=== PATIENT | male | born 1970 | race Two or more races ===

== ENCOUNTER 2017-07-18 12:54 | Inpatient (IN) | payer OTHER ==
[2017-07-18 12:58] VITALS: BMI 24.2
--- NOTE | 2017-07-18 14:59 | HP ---
COWS - Scale Resting Pulse: 1= AL 81-100 Sweatin=Flushed/Facial Moisture Restless Observation: 3= Extraneous Movement Pupil Size: 2= Moderately Dilated Bone or Joint Aches: 2= Severe Diffuse Aches Runny Nose/ Eye Tearin= Runny Nose/Eyes GI Upset > 30mins: 3= Vomiting/Diarrhea Tremor Observation: 2= Slight Tremor Visible Yawning Observation: 2= >3x During Session Anxiety or Irritability: 2=Irritable/Anxious Goose Flesh Skin: 0=Smooth Skin COWS Score: 21 CIWA Score - CIWA Score Nausea/Vomitin Muscle Tremors: 3 Anxiety: 3 Agitation: 3 Paroxysmal Sweats: 2 Orientation: 0-Oriented Tacttile Disturbances: 2-Mild Itch/Numbness/Burn Auditory Disturbances: 2-Mild Harshness/Frighten Visual Disturbances: 1-Very Mild Sensitivity Headache: 2-Mild CIWA-Ar Total Score: 21 Admission ROS BHS - HPI Chief Complaint: I NEED HELP TO STOP USING HEROIN,ALCOHOL,XANAX,MARIJUANA Allergies/Adverse Reactions: Allergies Allergy/AdvReac Type Severity Reaction Status Date / Time Fish Containing Products Allergy Severe Swelling Verified 11/15/15 14:58 History of Present Illness: THIS 47 YEARS OLD MALE WITH HEROIN,ALCOHOL,MARIJUANA AND XANAX DEPENDENCE, SEEKING DETOX,LAST TREATMENT IN REHAB [facility] 11/14/16 TO 11/21/16 ALLERGIC TO SEAFOOD INSOMNIA NICOTINE DEPENDENCE WEIGHT LOSS HIV SINCE 1985 LONGEST PERIOD OF SOBRIETY 2 YEARS Exam Limitations: No Limitations - Ebola screening Have you been sick,other than usual withdrawal symptoms: No - Review of Systems Constitutional: Chills, Loss of Appetite, Malaise, Night Sweats, Changes in sleep, Weakness, Unintentional Wgt. Loss EENT: reports: Tearing, Nose Congestion Respiratory: reports: No Symptoms reported, Other (ASTHMA HISTORY) Cardiac: reports: No Symptoms Reported GI: reports: Diarrhea, Nausea, Vomiting, Abdominal cramping : reports: No Symptoms Reported Musculoskeletal: reports: Back Pain, Muscle Pain Integumentary: reports: Dryness Neuro: reports: Headache, Tremors Endocrine: reports: No Symptoms Reported Hematology: reports: Other (HIV) Psychiatric: reports: No Sypmtoms Reported, other (INSOMNIA) Patient History - Patient Medical History Hx Anemia: No Hx Asthma: Yes (ON ALBUTEROL INHALER) Hx Chronic Obstructive Pulmonary Disease (COPD): No Hx Cancer: No Hx Cardiac Disorders: No Hx Congestive Heart Failure: No Hx Hypertension: No Hx Hypercholesterolemia: Yes (ON MED) Hx Pacemaker: No HX Cerebrovascular Accident: No Hx Seizures: No Hx Dementia: No Hx Diabetes: No Hx Gastrointestinal Disorders: No Hx Liver Disease: No Hx Genitourinary Disorders: No Hx Sexually Transmitted Disorders: No Hx Renal Disease (ESRD): No Hx Thyroid Disease: No Hx Human Immunodeficiency Virus (HIV): Yes (SINCE 1985) Hx Hepatitis C: No Hx Depression: No Hx Suicide Attempt: No Hx Bipolar Disorder: No Hx Schizophrenia: No Other Medical History: INSOMNIA,NO SUICIDAL,NO HOMICIDAL - Patient Surgical History Past Surgical History: No Hx Neurologic Surgery: No Hx Cataract Extraction: No Hx Cardiac Surgery: No Hx Lung Surgery: No Hx Breast Surgery: No Hx Breast Biopsy: No Hx Abdominal Surgery: No Hx Appendectomy: No Hx Cholecystectomy: No Hx Genitourinary Surgery: No Hx Section: No Hx Orthopedic Surgery: No Anesthesia Reaction: No - PPD History Previous Implant?: Yes Documented Results: Negative w/o proof PPD to be Administered?: Yes - Smoking Cessation Smoking history: Current every day smoker Have you smoked in the past 12 months: Yes Aproximately how many cigarettes per day: 10 Hx Chewing Tobacco Use: No Initiated information on smoking cessation: Yes 'Breaking Loose' booklet given: 07/18/17 - Substance & Tx. History Hx Alcohol Use: Yes Hx Substance Use: Yes Substance Use Type: Alcohol, Heroin Hx Substance Use Treatment: Yes ([facility] FROM 11/15/15 TO 11/21/13 [facility]) - Substances Abused Alcohol Route: Oral Frequency: Daily Amount used: 1 PINT OF JESSICABARCADI/ 2 OF 6 PACKS OF 12 OZS OF BEER Age of first use: 9 Date of Last Use: 07/18/17 Heroin Route: Inhalation Frequency: Daily Amount used: 10 BAGS Age of first use: 11 Date of Last Use: 07/18/17 Marijuana/Hashish Route: Smoking Frequency: Daily Amount used: 10$ Age of first use: 10 Date of Last Use: 07/17/17 Alprazolam (Xanax) Route: Oral Frequency: 1-2 times per week Amount used: 4 MGS Age of first use: 46 Date of Last Use: 07/17/17 Family Disease History - Family Disease History Family History: Denies Admission Physical Exam [facility] - Vital Signs Vital Signs: Vital Signs - 24 hr 07/18/17 12:55 Temperature 96 F L Pulse Rate 93 H Respiratory 20 Rate Blood Pressure 140/93 - Physical General Appearance: Yes: Moderate Distress, Tremorous, Irritable, Sweating, Anxious HEENTM: Yes: Normal ENT Inspection, Normocephalic, [place], Pharynx Normal Respiratory: Yes: Lungs Clear, Normal Breath Sounds, No Respiratory Distress Breast: Yes: Within Normal Limits Cardiology: Yes: Within Normal Limits, Regular Rhythm, Regular Rate, S1, S2 Abdominal: Yes: Within Normal Limits, Normal Bowel Sounds, Non Tender, Soft Genitourinary: Yes: Within Normal Limits Back: Yes: Muscle Spasm Musculoskeletal: Yes: full range of Motion, Back pain, Muscle Pain Extremities: Yes: Tremors Neurological: Yes: sole cementer II-XII NML intact, Fully Oriented, Alert, Motor Strength 5/5, Normal Mood/Affect Integumentary: Yes: Dry Lymphatic: Yes: Within Normal Limits - Diagnostic (1) Opioid dependence with withdrawal Current Visit: Yes Status: Acute (2) Alcohol dependence with uncomplicated withdrawal Current Visit: Yes Status: Acute (3) Asthma Current Visit: No Status: Acute (4) Hepatitis C Current Visit: No Status: Acute (5) Hypercholesterolemia Current Visit: No Status: Acute (6) Hypertension Current Visit: No Status: Acute (7) Neuropathy Current Visit: No Status: Acute (8) Nicotine dependence Current Visit: No Status: Acute (9) Weight loss Current Visit: No Status: Acute (10) Insomnia Current Visit: Yes Status: Acute Cleared for Admission [facility] - Detox or Rehab [facility] Level of Care: Medically Managed Detox Regimen/Protocol: Methadone/Librium [facility] Breath Alcohol Content Breath Alcohol Content: 0.087 Urine Drug Screen - Results Drug Screen Negative: No Urine Drug Screen Results: THC-Marijuana, OPI-Opiates, BZO-Benzodiazepines, MTD- Methadone
[2017-07-18] MEDS ORDERED: MAGNESIUM CITRATE 300 ML BOTTLE PO PRN (15:18)
[2017-07-18] MEDS ORDERED: MAGNESIUM HYDROX 2400MG/30ML ORAL SUSPENSION 30 ML CUP PO PRN (15:18)
[2017-07-18] MEDS ORDERED: guaiFENesin/D-METHORPHAN HB 10 ML UNIT-DOSE CUPS PO PRN (15:18)
[2017-07-18] MEDS ORDERED: IBUPROFEN 400 MG TABLET (FP) PO PRN (15:18)
[2017-07-18] MEDS ORDERED: ACETAMINOPHEN 325 MG TABLET (FP) PO PRN (15:18)
[2017-07-18] MEDS ORDERED: MENTHOL/PHENOL 1 EACH UD MM PRN (15:18)
[2017-07-18] MEDS ORDERED: METHADONE HCL 10 MG TABLET (FOR DETOX USE ONLY) PO ONE ×2 (15:18→23:00)
[2017-07-18] MEDS ORDERED: chlordiazePOXIDE HCL 25 MG CAPSULE PO PRN (15:18)
[2017-07-18] MEDS ORDERED: chlordiazePOXIDE HCL 25 MG CAPSULE PO ONE (15:18)
[2017-07-18] MEDS ORDERED: P-EPHED 60MG/TRIPROLIDI 2.5MG TABLET PO PRN (15:18)
[2017-07-18] MEDS ORDERED: MAG HYDROX/AL HYDROX/SIMETH 30 ML UNIT-DOSE CUP PO PRN (15:18)
[2017-07-18] MEDS ORDERED: hydrOXYzine PAMOATE 50 MG CAPSULE (FP) PO PRN (15:18)
[2017-07-18] MEDS ORDERED: LOPERAMIDE HCL 2 MG CAPSULE PO PRN (15:18)
[2017-07-18] MEDS ORDERED: ALBUTEROL SO4 18 GM HFA INHALER IH PRN (15:23)
[2017-07-18] MEDS: chlordiazePOXIDE HCL 25 MG CAPSULE PO SCH ×2 (17:41→22:39)
[2017-07-18 18:58] LABS: URINE APPEARANCE CLEAR; URINE BILIRUBIN NEGATIVE (NEGATIVE); URINE BLOOD NEGATIVE (NEGATIVE); URINE COLOR STRAW; URINE GLUCOSE (UA) NEGATIVE (NEGATIVE); URINE KETONE NEGATIVE (NEGATIVE); URINE LEUK ESTERASE NEGATIVE (NEGATIVE); URINE NITRITE NEGATIVE (NEGATIVE); URINE PROTEIN NEGATIVE (NEGATIVE); URINE UROBILINOGEN NEGATIVE mg/dL (0.2-1.0)
[2017-07-18] MEDS ORDERED: lamiVUDine/ZIDOVUDINE 150/300 1 COMBO TABLET PO SCH (22:00)
[2017-07-18] MEDS ORDERED: THIAMINE HCL 100 MG TABLET (FP) PO SCH (22:00)
[2017-07-19] MEDS: chlordiazePOXIDE HCL 25 MG CAPSULE PO SCH (05:56)
[2017-07-19 06:23] VITALS: BP 123/74; PULSE 55; TEMP 98.1
--- NOTE | 2017-07-19 07:35 | CONSULT ---
[facility] Psychiatric Consult - Data Identifying data: THIS 47 YEARS OLD MALE WITH HEROIN,ALCOHOL,MARIJUANA AND XANAX DEPENDENCE,SEEKING DETOX,LAST TREATMENT IN REHAB [facility] 11/14/16 TO . ALLERGIC TO SEAFOOD Substance Abuse History: Smoking history: Current every day smoker. Have you smoked in the past 12 months: Yes. Aproximately how many cigarettes per day: 10. Hx Chewing Tobacco Use: No. Initiated information on smoking cessation: Yes. 'Breaking Loose' booklet given: 07/18/17. - Substance & Tx. History. Hx Alcohol Use: Yes. Hx Substance Use: Yes. Substance Use Type: Alcohol, Heroin. Hx Substance Use Treatment: Yes ([facility] FROM 11/15/15 TO 11/21/13 [facility]). - Substances Abused. Alcohol. Route: Oral. Frequency: Daily. Amount used : 1 PINT OF JESSICA,BARCADI/ 2 OF 6 PACKS OF 12 OZS OF BEER. Age of first use: 9. Date of Last Use: 07/18/17. Heroin. Route: Inhalation. Frequency: Daily. Amount used: 10 BAGS. Age of first use: 11. Date of Last Use: . Marijuana/Hashish. Route: Smoking. Frequency: Daily. Amount used: 10$ . Age of first use: 10. Date of Last Use: 07/17/17. Alprazolam (Xanax). Route: Oral. Frequency: 1-2 times per week. Amount used: 4 MGS. Age of first use: 46. Date of Last Use: 07/17/17 Additional Comment: Discharged AMA
[2017-07-19] MEDS ORDERED: DARUNAVIR ETHANOLATE 800 MG TAB PO SCH (08:00)
--- NOTE | 2017-07-19 08:24 | PN ---
[place] Progress Note Note: patient stated he is on methadone maintenance program at [facility],verified 80 mgs /day,last medicated 07/18/17 methadone ordered,d/c methadone regimen,cont detox with librium regimen
[2017-07-19] MEDS ORDERED: METHADONE HCL 40 MG DISPERSABLE TABLET PO ONE (08:27)
--- NOTE | 2017-07-19 09:42 | PN ---
S CIWA - CIWA Score Nausea/Vomitin Muscle Tremors: 3 Anxiety: 3 Agitation: 3 Paroxysmal Sweats: 1-Minimal Palms Moist Orientation: 0-Oriented Tacttile Disturbances: 1-Very Mild Itch/Numbness Auditory Disturbances: 1-Very Mild Visual Disturbances: 0-None Headache: 2-Mild CIWA-Ar Total Score: 17 BHS Progress Note (SOAP) Subjective: alert,irritable,anxious,interrupted sleep,tremor,pain in the body Objective: 07/19/17 09:39 Vital Signs Temperature 98.1 F 07/19/17 06:22 Pulse Rate 55 L 07/19/17 06:22 Respiratory Rate 18 07/19/17 06:22 Blood Pressure 123/74 07/19/17 06:22 O2 Sat by Pulse Oximetry (%) ekg nsr,inverted t in 3 no chest pain,no sob,no dizziness Laboratory Last Values Urine Color Straw 07/18/17 15:45 Urine Appearance Clear 07/18/17 15:45 Urine pH 6.0 (5.0-8.0) 07/18/17 15:45 Ur Specific [place] 1.005 (1.001-1.035) 07/18/17 15:45 Urine Protein Negative (NEGATIVE) 07/18/17 15:45 Urine Glucose (UA) Negative (NEGATIVE) 07/18/17 15:45 Urine Ketones Negative (NEGATIVE) 07/18/17 15:45 Urine Blood Negative (NEGATIVE) 07/18/17 15:45 Urine Nitrite Negative (NEGATIVE) 07/18/17 15:45 Urine Bilirubin Negative (NEGATIVE) 07/18/17 15:45 Urine Urobilinogen Negative mg/dL (0.2-1.0) 07/18/17 15:45 Ur Leukocyte Esterase Negative (NEGATIVE) 07/18/17 15:45 labs pending Assessment: 07/19/17 09:41 withdrawal symptom Plan: continue detox
--- NOTE | 2017-07-19 09:44 | PN ---
[place] Progress Note Note: patient did not want to complete treatment due to emergency medical problem in the family mother is in the hospital, signed release ama,seen by counselor
--- NOTE | 2017-07-19 09:49 | DS ---
[facility] Detox Discharge Summary Admission Date: 07/18/17 Discharge Date: 07/19/17 - History Present History: Alcohol Dependence, Opioid Dependence, MMTP Additional Comments: patient did not want to complete treatment due to emergency medical problem iin the family mother is in the hospital,signed release ama,seen by counselor Pertinent Past History: asthma hepatitis c hypertension hypercholesterolemia nicotine dependence mmtp hiv weight loss insomnia - Physical Exam Results Vital Signs: Vital Signs Temperature 98.1 F 07/19/17 06:22 Pulse Rate 55 L 07/19/17 06:22 Respiratory Rate 18 07/19/17 06:22 Blood Pressure 123/74 07/19/17 06:22 O2 Sat by Pulse Oximetry (%) Pertinent Admission Physical Exam Findings: withdrawal symptom and finding - Medication Discharge Medications: Ambulatory Orders Albuterol Sulfate Inhaler - [Ventolin Hfa Inhaler -] 2 inh PO Q4H PRN 11/15/15 Ritonavir [Norvir -] 100 mg PO DAILY 11/15/15 predniSONE [Deltasone -] 5 mg PO DAILY 11/15/15 Darunavir Ethanolate [Prezista -] 800 mg PO DAILY@0800 #30 tablet 11/22/15 Lamivudine/Zidovudine 150/300 [Combivir Tablet 150/300 -] 1 combo PO BID #30 tablet 11/22/15 Quetiapine Fumarate [Seroquel -] 50 mg PO DAILY #30 tablet 11/22/15 Ritonavir [Norvir -] 100 mg PO DAILY@0800 #30 tab 11/22/15 traZODone HCL [Desyrel -] 50 mg PO HS #30 tablet 11/22/15 Quetiapine Fumarate [Seroquel -] 200 mg PO HS #30 tab 07/19/17 - Diagnosis (1) Opioid dependence with withdrawal Current Visit: Yes Status: Acute (2) Alcohol dependence with uncomplicated withdrawal Current Visit: Yes Status: Acute (3) Asthma Current Visit: No Status: Acute (4) Hepatitis C Current Visit: No Status: Acute (5) Hypercholesterolemia Current Visit: No Status: Acute (6) Hypertension Current Visit: No Status: Acute (7) Neuropathy Current Visit: No Status: Acute (8) Nicotine dependence Current Visit: No Status: Acute (9) Weight loss Current Visit: No Status: Acute (10) Insomnia Current Visit: Yes Status: Acute (11) Methadone maintenance therapy patient Current Visit: Yes Status: Acute (12) HIV (human immunodeficiency virus infection) Current Visit: No Status: Acute - AMA Did Patient Leave Against Medical Advice: Yes
[2017-07-19] MEDS ORDERED: METHADONE HCL 10 MG TABLET (FOR DETOX USE ONLY) PO SCH (10:00)
[2017-07-19] MEDS ORDERED: predniSONE 10 MG TABLET (UD) PO SCH (10:00)
[2017-07-19] MEDS ORDERED: RITONAVIR 100 MG TABLET PO SCH (10:00)
[2017-07-19] MEDS ORDERED: PRENATAL VITAMINS W/ FOLIC ACID TABLET (FP) PO SCH (10:00)
[2017-07-19 10:06] LABS: HEMOGLOBIN 14.2 GM/dL (11.7-16.9); MCH 27.7 pg (25.7-33.7); MCHC 32.4 g/dl (32.0-35.9); MEAN CELL VOLUME 85.5 fl (80-96); MEAN PLT VOLUME 11.2 fl (7.5-11.1); PLATELET COUNT 60 K/MM3 (134-434); RBC 5.14 M/mm3 (4.00-5.60); RDW 13.4 % (11.9-15.9); WHITE BLOOD COUNT 2.8 K/mm3 (4.0-10.0)
[2017-07-19 10:20] LABS: CHLORIDE 105 mmol/L (98-107); SODIUM 139 mmol/L (136-145)
[2017-07-19 10:29] LABS: ALBUMIN 3.3 g/dl (3.4-5.0); ALK PHOS 155 U/L (45-117); ANION GAP 5 (8-16); BILIRUBIN,TOTAL 0.6 mg/dL (0.2-1.0); BLOOD UREA NITROGEN 13 mg/dL (7-18); CALCIUM 8.2 mg/dL (8.5-10.1); CO2 29 mmol/L (21-32); GLUCOSE,RANDOM 134 mg/dL (74-106); SGOT/AST 74 U/L (15-37); SGPT/ALT 145 U/L (12-78); TOT PROT 6.5 g/dl (6.4-8.2)
[2017-07-19] MEDS ORDERED: chlordiazePOXIDE HCL 25 MG CAPSULE PO SCH (17:00)
[2017-07-19] MEDS ORDERED: QUEtiapine FUMARATE 200 MG TABLET PO SCH (22:00)
--- NOTE | 2017-07-19 23:33 | EKG ---
Test Reason : Blood Pressure : / mmHG Vent. Rate : 078 BPM Atrial Rate : 078 BPM P-R Int : 110 ms QRS Dur : 096 ms QT Int : 394 ms P-R-T Axes : 018 -14 006 degrees QTc Int : 449 ms SINUS RHYTHM WITH SHORT AL NONSPECIFIC T WAVE ABNORMALITY ABNORMAL ECG WHEN COMPARED WITH ECG OF 18-JUL-2017 16:05, NO SIGNIFICANT CHANGE WAS FOUND Confirmed by AYDEN MENA, LEN ([id number]) on 07/19/2017 11:33:06 PM Referred By: Alex Perez Confirmed By:LEN HENSLEY MD
[2017-07-20] MEDS ORDERED: METHADONE HCL 40 MG DISPERSABLE TABLET PO SCH (06:00)
[2017-07-20] MEDS ORDERED: METHADONE HCL 5 MG TABLET (FOR DETOX USE ONLY) PO SCH (10:00)
[2017-07-20] MEDS ORDERED: chlordiazePOXIDE 5 MG CAPSULE PO SCH (17:00)
[2017-07-21] MEDS ORDERED: chlordiazePOXIDE HCL 10 MG CAPSULE PO SCH (17:00)
[2017-07-22] MEDS ORDERED: METHADONE HCL 10 MG TABLET (FOR DETOX USE ONLY) PO SCH (10:00)
[2017-07-23] MEDS ORDERED: METHADONE HCL 5 MG TABLET (FOR DETOX USE ONLY) PO SCH (06:00)
== END 2017-07-19 09:57 | disposition left against medical advice (07) | DRG 770 ==
LOC: YASAS 12:54 → Y6N 14:16
PROVIDERS: ADMIT Internal Medicine; ATTEND Internal Medicine
PROC: HZ2ZZZZ Detoxification Services for Substance Abuse Treatment (ICD-10-PCS; principal; 2017-07-18)
DX: F11.23 Opioid dependence with withdrawal (principal); F10.230 Alcohol dependence with withdrawal, uncomplicated; F17.210 Nicotine dependence, cigarettes, uncomplicated; I10 Essential (primary) hypertension; J45.909 Unspecified asthma, uncomplicated; E78.00 Pure hypercholesterolemia, unspecified; G62.9 Polyneuropathy, unspecified; G47.00 Insomnia, unspecified; Z21 Asymptomatic human immunodeficiency virus [HIV] infection status; Z91.013 Allergy to seafood; Z87.898 Personal history of other specified conditions
CPT/HCPCS: 36415; 80053; 81003; 85027; 86593; 93005; 93010

== ENCOUNTER 2022-09-28 10:44 | Inpatient (IN) | payer OTHER ==
[2022-09-28 11:04] VITALS: BMI 25.4
[2022-09-28] MEDS ORDERED: DICYCLOMINE HCL 10 MG CAPSULE PO PRN (12:32)
[2022-09-28] MEDS ORDERED: ONDANSETRON *ODT* 4 MG TABLET SL PRN (12:32)
[2022-09-28] MEDS ORDERED: BISMUTH SUBSALICYLATE 262 MG/15 ML BTL PO PRN (12:32)
[2022-09-28] MEDS ORDERED: NICOTINE POLACRILEX 2 MG GUM BUC PRN (12:32)
[2022-09-28] MEDS ORDERED: MAGNESIUM HYDROX 2400MG/30ML ORAL SUSPENSION 30 ML CUP PO PRN (12:32)
[2022-09-28] MEDS ORDERED: guaiFENesin 600 MG TABLET.ER (FP) PO PRN (12:32)
[2022-09-28] MEDS ORDERED: POLYETHYLENE GLYCOL (HEALTHYLAX) 3350 17 GM PACKET PO PRN (12:32)
[2022-09-28] MEDS ORDERED: NICOTINE 10 MG CARTRIDGE (INHALER) IH PRN (12:32)
[2022-09-28] MEDS ORDERED: LOPERAMIDE HCL 2 MG CAPSULE PO PRN (12:32)
[2022-09-28] MEDS ORDERED: IBUPROFEN 400 MG TABLET (FP) PO PRN (12:32)
[2022-09-28] MEDS ORDERED: IBUPROFEN 600 MG TABLET (FP) PO PRN (12:32)
[2022-09-28] MEDS ORDERED: BENZOCAINE/MENTHOL (CHLORASEPTIC ) LOZENGE MM PRN (12:32)
[2022-09-28] MEDS ORDERED: NALOXONE HCL (KLOXXADO) 8 MG SPRAY NS PRN (12:32)
[2022-09-28] MEDS ORDERED: BENZONATATE 200 MG CAPSULE PO PRN (12:32)
[2022-09-28] MEDS ORDERED: hydrOXYzine PAMOATE 25 MG CAPSULE (FP) PO PRN (12:32)
[2022-09-28] MEDS ORDERED: ACETAMINOPHEN 325 MG TABLET (FP) PO PRN (12:32)
[2022-09-28] MEDS ORDERED: NALOXONE HCL 0.4 MG/ML VIAL IM PRN (12:32)
[2022-09-28] MEDS ORDERED: ALBUTEROL SO4 HFA INHALER IH PRN (12:35)
[2022-09-28] MEDS: PRENATAL VITAMINS W/ FOLIC ACID TABLET (FP) PO SCH (14:33)
[2022-09-28 14:35] LABS: HEMATOCRIT 40.9 % (35.4-49); MCH 28.5 pg (25.7-33.7); MCHC 34.2 g/dl (32.0-35.9); MEAN CELL VOLUME 83.3 fl (80-96); MEAN PLT VOLUME 9.8 fl (7.5-11.1); PLATELET COUNT 133 10^3/uL (134-434); RBC 4.91 M/mm3 (4.00-5.60); RDW 15.4 % (11.9-15.9); WHITE BLOOD COUNT 4.8 K/mm3 (4.0-10.0)
[2022-09-28 14:47] LABS: ALBUMIN 3.3 g/dl (3.4-5.0); BLOOD UREA NITROGEN 13.2 mg/dL (7-18); CALCIUM 8.8 mg/dL (8.5-10.1)
[2022-09-28 14:52] LABS: BILIRUBIN,TOTAL 0.5 mg/dL (0.2-1)
[2022-09-28] MEDS: diazePAM 5 MG TABLET PO SCH ×2 (17:13→22:26)
[2022-09-28] MEDS ORDERED: MELATONIN 5 MG TABLETS PO SCH (22:00)
[2022-09-28] MEDS: THIAMINE HCL 100 MG TABLET (FP) PO SCH (22:24)
[2022-09-28] MEDS: QUEtiapine FUMARATE 100 MG TABLET (FP) PO SCH (22:25)
[2022-09-29] MEDS: diazePAM 5 MG TABLET PO SCH ×4 (05:32→22:16)
[2022-09-29] MEDS ORDERED: methaDONE HCL 10 MG TABLET PO SCH (06:00)
[2022-09-29] MEDS: ELVITEG/COB/EMTRI/TENOF (GENVOYA) TABLET PO SCH (07:50)
[2022-09-29] MEDS: SERTRALINE HCL 50 MG TABLET (FP) PO SCH (10:32)
[2022-09-29] MEDS: PRENATAL VITAMINS W/ FOLIC ACID TABLET (FP) PO SCH (10:32)
[2022-09-29] MEDS: predniSONE 5 MG TABLET (UD) PO SCH (10:32)
[2022-09-29] MEDS: diazePAM 5 MG TABLET PO PRN (18:49)
[2022-09-29] MEDS: QUEtiapine FUMARATE 100 MG TABLET (FP) PO SCH (22:15)
[2022-09-29] MEDS: THIAMINE HCL 100 MG TABLET (FP) PO SCH (22:15)
[2022-09-30] MEDS: diazePAM 5 MG TABLET PO SCH ×3 (05:41→22:27)
[2022-09-30] MEDS: ELVITEG/COB/EMTRI/TENOF (GENVOYA) TABLET PO SCH (07:31)
[2022-09-30] MEDS: predniSONE 5 MG TABLET (UD) PO SCH (10:24)
[2022-09-30] MEDS: PRENATAL VITAMINS W/ FOLIC ACID TABLET (FP) PO SCH (10:24)
[2022-09-30] MEDS: SERTRALINE HCL 50 MG TABLET (FP) PO SCH (10:24)
[2022-09-30] MEDS: diazePAM 5 MG TABLET PO PRN (10:24)
[2022-09-30] MEDS: MAG HYDROX/AL HYDROX/SIMETH 30 ML UNIT-DOSE CUP PO PRN ×2 (14:20→23:33)
[2022-09-30] MEDS: THIAMINE HCL 100 MG TABLET (FP) PO SCH (22:27)
[2022-09-30] MEDS: QUEtiapine FUMARATE 100 MG TABLET (FP) PO SCH (22:27)
[2022-09-30] MEDS: METHOCARBAMOL 500 MG TABLET PO PRN (22:28)
[2022-10-01] MEDS: diazePAM 5 MG TABLET PO SCH ×2 (05:29→17:55)
[2022-10-01] MEDS: ELVITEG/COB/EMTRI/TENOF (GENVOYA) TABLET PO SCH (07:13)
[2022-10-01] MEDS: METHOCARBAMOL 500 MG TABLET PO PRN ×2 (09:40→22:21)
[2022-10-01] MEDS: diazePAM 5 MG TABLET PO PRN (09:40)
[2022-10-01] MEDS: predniSONE 5 MG TABLET (UD) PO SCH (09:41)
[2022-10-01] MEDS: SERTRALINE HCL 50 MG TABLET (FP) PO SCH (09:41)
[2022-10-01] MEDS: PRENATAL VITAMINS W/ FOLIC ACID TABLET (FP) PO SCH (09:41)
[2022-10-01] MEDS: THIAMINE HCL 100 MG TABLET (FP) PO SCH (22:20)
[2022-10-01] MEDS: QUEtiapine FUMARATE 100 MG TABLET (FP) PO SCH (22:20)
[2022-10-02] MEDS ORDERED: diazePAM 5 MG TABLET PO ONE (06:00)
[2022-10-02] MEDS: ELVITEG/COB/EMTRI/TENOF (GENVOYA) TABLET PO SCH (08:20)
[2022-10-02] MEDS: SERTRALINE HCL 50 MG TABLET (FP) PO SCH (10:16)
[2022-10-02] MEDS: predniSONE 5 MG TABLET (UD) PO SCH (10:16)
[2022-10-02] MEDS: PRENATAL VITAMINS W/ FOLIC ACID TABLET (FP) PO SCH (10:16)
[2022-10-02 12:40] VITALS: BP 109/73; PULSE 86; RESP 16; TEMP 97.7
== END 2022-10-02 13:38 | disposition other institution (70) | DRG 773 ==
LOC: YASAS 10:44 → Y3N 13:20
PROVIDERS: ADMIT Allergy & Immunology; ATTEND Surgery
PROC: HZ2ZZZZ Detoxification Services for Substance Abuse Treatment (ICD-10-PCS; principal; 2022-09-28)
DX: F10.230 Alcohol dependence with withdrawal, uncomplicated (principal); F11.20 Opioid dependence, uncomplicated; F13.20 Sedative, hypnotic or anxiolytic dependence, uncomplicated; F14.20 Cocaine dependence, uncomplicated; F31.9 Bipolar disorder, unspecified; F19.282 Other psychoactive substance dependence with psychoactive substance-induced sleep disorder; Z21 Asymptomatic human immunodeficiency virus [HIV] infection status; G62.9 Polyneuropathy, unspecified; I10 Essential (primary) hypertension; E78.00 Pure hypercholesterolemia, unspecified; J45.30 Mild persistent asthma, uncomplicated; Z62.810 Personal history of physical and sexual abuse in childhood; Z86.19 Personal history of other infectious and parasitic diseases; Z72.0 Tobacco use
CPT/HCPCS: 36415; 80053; 82140; 85027; 86780; 87811; 93005; 93010; C9803-CS; U0003; U0005

== ENCOUNTER 2022-10-02 14:00 | Inpatient (IN) | payer OTHER ==
[2022-10-02] MEDS ORDERED: LOPERAMIDE HCL 2 MG CAPSULE PO PRN (14:41)
[2022-10-02] MEDS ORDERED: BENZONATATE 200 MG CAPSULE PO PRN (14:41)
[2022-10-02] MEDS ORDERED: IBUPROFEN 600 MG TABLET (FP) PO PRN (14:41)
[2022-10-02] MEDS ORDERED: NALOXONE HCL (KLOXXADO) 8 MG SPRAY NS PRN (14:41)
[2022-10-02] MEDS ORDERED: NALOXONE HCL 0.4 MG/ML VIAL IVPUSH PRN (14:41)
[2022-10-02] MEDS ORDERED: BENZOCAINE/MENTHOL (CHLORASEPTIC ) LOZENGE MM PRN (14:41)
[2022-10-02] MEDS ORDERED: AMMONIUM LACTATE 12% LOTION 225 GM BOTTLE TP PRN (14:41)
[2022-10-02] MEDS ORDERED: COLLOIDAL OATMEAL 1 BAR EACH TP PRN (14:41)
[2022-10-02] MEDS ORDERED: hydrOXYzine PAMOATE 25 MG CAPSULE (FP) PO PRN (14:41)
[2022-10-02] MEDS ORDERED: IBUPROFEN 400 MG TABLET (FP) PO PRN (14:41)
[2022-10-02] MEDS ORDERED: ACETAMINOPHEN 325 MG TABLET (FP) PO PRN (14:41)
[2022-10-02] MEDS ORDERED: MAGNESIUM HYDROX 2400MG/30ML ORAL SUSPENSION 30 ML CUP PO PRN (14:41)
[2022-10-02] MEDS ORDERED: POLYETHYLENE GLYCOL (HEALTHYLAX) 3350 17 GM PACKET PO PRN (14:41)
[2022-10-02] MEDS ORDERED: guaiFENesin 600 MG TABLET.ER (FP) PO PRN (14:41)
[2022-10-02] MEDS ORDERED: ALBUTEROL SO4 HFA INHALER IH PRN (14:44)
[2022-10-02] MEDS: THIAMINE HCL 100 MG TABLET (FP) PO SCH (21:15)
[2022-10-02] MEDS: QUEtiapine FUMARATE 200 MG TABLET PO SCH (21:17)
[2022-10-02] MEDS: MELATONIN 5 MG TABLETS PO PRN (21:18)
[2022-10-02] MEDS ORDERED: MELATONIN 5 MG TABLETS PO SCH (22:00)
[2022-10-03] MEDS ORDERED: methaDONE HCL 10 MG TABLET PO SCH (06:00)
[2022-10-03] MEDS: ELVITEG/COB/EMTRI/TENOF (GENVOYA) TABLET PO SCH (09:00)
[2022-10-03] MEDS: SERTRALINE HCL 50 MG TABLET (FP) PO SCH (09:49)
[2022-10-03] MEDS: predniSONE 5 MG TABLET (UD) PO SCH (09:49)
[2022-10-03] MEDS: PRENATAL VITAMINS W/ FOLIC ACID TABLET (FP) PO SCH (09:49)
[2022-10-03] MEDS: THIAMINE HCL 100 MG TABLET (FP) PO SCH (21:10)
[2022-10-03] MEDS: QUEtiapine FUMARATE 200 MG TABLET PO SCH (21:11)
[2022-10-03] MEDS: MAG HYDROX/AL HYDROX/SIMETH 30 ML UNIT-DOSE CUP PO PRN (21:12)
[2022-10-03] MEDS: MELATONIN 5 MG TABLETS PO PRN (21:12)
[2022-10-04] MEDS: ELVITEG/COB/EMTRI/TENOF (GENVOYA) TABLET PO SCH (08:07)
[2022-10-04] MEDS: SERTRALINE HCL 50 MG TABLET (FP) PO SCH (10:04)
[2022-10-04] MEDS: PRENATAL VITAMINS W/ FOLIC ACID TABLET (FP) PO SCH (10:04)
[2022-10-04] MEDS: predniSONE 5 MG TABLET (UD) PO SCH (10:05)
[2022-10-04] MEDS: MAG HYDROX/AL HYDROX/SIMETH 30 ML UNIT-DOSE CUP PO PRN (11:07)
[2022-10-04] MEDS: QUEtiapine FUMARATE 200 MG TABLET PO SCH (21:26)
[2022-10-04] MEDS: MELATONIN 5 MG TABLETS PO PRN (21:26)
[2022-10-04] MEDS: THIAMINE HCL 100 MG TABLET (FP) PO SCH (21:26)
[2022-10-05] MEDS: ELVITEG/COB/EMTRI/TENOF (GENVOYA) TABLET PO SCH (07:17)
[2022-10-05] MEDS: MAG HYDROX/AL HYDROX/SIMETH 30 ML UNIT-DOSE CUP PO PRN (09:23)
[2022-10-05] MEDS: SERTRALINE HCL 50 MG TABLET (FP) PO SCH (09:55)
[2022-10-05] MEDS: predniSONE 5 MG TABLET (UD) PO SCH (09:55)
[2022-10-05] MEDS: PRENATAL VITAMINS W/ FOLIC ACID TABLET (FP) PO SCH (09:55)
[2022-10-05] MEDS: QUEtiapine FUMARATE 200 MG TABLET PO SCH (21:02)
[2022-10-05] MEDS: THIAMINE HCL 100 MG TABLET (FP) PO SCH (21:03)
[2022-10-05] MEDS: MELATONIN 5 MG TABLETS PO PRN (21:04)
[2022-10-06] MEDS: ELVITEG/COB/EMTRI/TENOF (GENVOYA) TABLET PO SCH (07:15)
[2022-10-06] MEDS: PRENATAL VITAMINS W/ FOLIC ACID TABLET (FP) PO SCH (09:42)
[2022-10-06] MEDS: predniSONE 5 MG TABLET (UD) PO SCH (09:43)
[2022-10-06] MEDS: SERTRALINE HCL 50 MG TABLET (FP) PO SCH (09:43)
[2022-10-06] MEDS: NICOTINE 10 MG CARTRIDGE (INHALER) IH PRN (09:44)
[2022-10-06] MEDS: QUEtiapine FUMARATE 200 MG TABLET PO SCH (21:15)
[2022-10-06] MEDS: MELATONIN 5 MG TABLETS PO PRN (21:15)
[2022-10-06] MEDS: THIAMINE HCL 100 MG TABLET (FP) PO SCH (21:15)
[2022-10-06] MEDS: MAG HYDROX/AL HYDROX/SIMETH 30 ML UNIT-DOSE CUP PO PRN (21:16)
[2022-10-07] MEDS: ELVITEG/COB/EMTRI/TENOF (GENVOYA) TABLET PO SCH (07:03)
[2022-10-07] MEDS: PRENATAL VITAMINS W/ FOLIC ACID TABLET (FP) PO SCH (09:51)
[2022-10-07] MEDS: SERTRALINE HCL 50 MG TABLET (FP) PO SCH (09:51)
[2022-10-07] MEDS: predniSONE 5 MG TABLET (UD) PO SCH (09:52)
[2022-10-07] MEDS: MAG HYDROX/AL HYDROX/SIMETH 30 ML UNIT-DOSE CUP PO PRN ×2 (13:46→21:15)
[2022-10-07] MEDS: NICOTINE 10 MG CARTRIDGE (INHALER) IH PRN (14:37)
[2022-10-07] MEDS: THIAMINE HCL 100 MG TABLET (FP) PO SCH (21:15)
[2022-10-07] MEDS: QUEtiapine FUMARATE 200 MG TABLET PO SCH (21:15)
[2022-10-07] MEDS: MELATONIN 5 MG TABLETS PO PRN (21:15)
[2022-10-08] MEDS: PRENATAL VITAMINS W/ FOLIC ACID TABLET (FP) PO SCH (09:48)
[2022-10-08] MEDS: ELVITEG/COB/EMTRI/TENOF (GENVOYA) TABLET PO SCH (09:48)
[2022-10-08] MEDS: predniSONE 5 MG TABLET (UD) PO SCH (09:48)
[2022-10-08] MEDS: SERTRALINE HCL 50 MG TABLET (FP) PO SCH (09:48)
[2022-10-08] MEDS: QUEtiapine FUMARATE 200 MG TABLET PO SCH (21:22)
[2022-10-08] MEDS: THIAMINE HCL 100 MG TABLET (FP) PO SCH (21:23)
[2022-10-08] MEDS: MELATONIN 5 MG TABLETS PO PRN (21:24)
[2022-10-09] MEDS: ELVITEG/COB/EMTRI/TENOF (GENVOYA) TABLET PO SCH (08:02)
[2022-10-09] MEDS: SERTRALINE HCL 50 MG TABLET (FP) PO SCH (09:39)
[2022-10-09] MEDS: PRENATAL VITAMINS W/ FOLIC ACID TABLET (FP) PO SCH (09:40)
[2022-10-09] MEDS: NICOTINE 10 MG CARTRIDGE (INHALER) IH PRN (09:40)
[2022-10-09] MEDS: predniSONE 5 MG TABLET (UD) PO SCH (09:40)
[2022-10-09] MEDS: THIAMINE HCL 100 MG TABLET (FP) PO SCH (21:18)
[2022-10-09] MEDS: QUEtiapine FUMARATE 200 MG TABLET PO SCH (21:18)
[2022-10-09] MEDS: MELATONIN 5 MG TABLETS PO PRN (21:19)
[2022-10-10] MEDS: ELVITEG/COB/EMTRI/TENOF (GENVOYA) TABLET PO SCH (07:04)
[2022-10-10] MEDS: PRENATAL VITAMINS W/ FOLIC ACID TABLET (FP) PO SCH (10:05)
[2022-10-10] MEDS: predniSONE 5 MG TABLET (UD) PO SCH (10:05)
[2022-10-10] MEDS: SERTRALINE HCL 50 MG TABLET (FP) PO SCH (10:05)
[2022-10-10] MEDS: THIAMINE HCL 100 MG TABLET (FP) PO SCH (21:19)
[2022-10-10] MEDS: QUEtiapine FUMARATE 200 MG TABLET PO SCH (21:19)
[2022-10-10] MEDS: MELATONIN 5 MG TABLETS PO PRN (21:20)
[2022-10-11] MEDS: ELVITEG/COB/EMTRI/TENOF (GENVOYA) TABLET PO SCH (07:21)
[2022-10-11] MEDS: SERTRALINE HCL 50 MG TABLET (FP) PO SCH (09:50)
[2022-10-11] MEDS: predniSONE 5 MG TABLET (UD) PO SCH (09:50)
[2022-10-11] MEDS: PRENATAL VITAMINS W/ FOLIC ACID TABLET (FP) PO SCH (09:50)
[2022-10-11] MEDS: NICOTINE 10 MG CARTRIDGE (INHALER) IH PRN (09:50)
[2022-10-11] MEDS: MELATONIN 5 MG TABLETS PO PRN (21:08)
[2022-10-11] MEDS: THIAMINE HCL 100 MG TABLET (FP) PO SCH (21:08)
[2022-10-11] MEDS: QUEtiapine FUMARATE 200 MG TABLET PO SCH (21:08)
[2022-10-12] MEDS: ELVITEG/COB/EMTRI/TENOF (GENVOYA) TABLET PO SCH (07:04)
[2022-10-12] MEDS: PRENATAL VITAMINS W/ FOLIC ACID TABLET (FP) PO SCH (09:51)
[2022-10-12] MEDS: SERTRALINE HCL 50 MG TABLET (FP) PO SCH (09:51)
[2022-10-12] MEDS: NICOTINE 10 MG CARTRIDGE (INHALER) IH PRN (09:52)
[2022-10-12] MEDS: predniSONE 5 MG TABLET (UD) PO SCH (09:52)
[2022-10-12] MEDS: QUEtiapine FUMARATE 200 MG TABLET PO SCH (21:35)
[2022-10-12] MEDS: MELATONIN 5 MG TABLETS PO PRN (21:35)
[2022-10-12] MEDS: THIAMINE HCL 100 MG TABLET (FP) PO SCH (21:36)
[2022-10-13] MEDS: predniSONE 5 MG TABLET (UD) PO SCH (09:58)
[2022-10-13] MEDS: PRENATAL VITAMINS W/ FOLIC ACID TABLET (FP) PO SCH (09:58)
[2022-10-13] MEDS: SERTRALINE HCL 50 MG TABLET (FP) PO SCH (09:58)
[2022-10-13] MEDS: NICOTINE 10 MG CARTRIDGE (INHALER) IH PRN (10:03)
[2022-10-13] MEDS: ELVITEG/COB/EMTRI/TENOF (GENVOYA) TABLET PO SCH (10:40)
[2022-10-13] MEDS: MELATONIN 5 MG TABLETS PO PRN (21:26)
[2022-10-13] MEDS: THIAMINE HCL 100 MG TABLET (FP) PO SCH (21:27)
[2022-10-13] MEDS: QUEtiapine FUMARATE 200 MG TABLET PO SCH (21:27)
[2022-10-14] MEDS: SERTRALINE HCL 50 MG TABLET (FP) PO SCH (10:11)
[2022-10-14] MEDS: PRENATAL VITAMINS W/ FOLIC ACID TABLET (FP) PO SCH (10:11)
[2022-10-14] MEDS: predniSONE 5 MG TABLET (UD) PO SCH (10:11)
[2022-10-14] MEDS: ELVITEG/COB/EMTRI/TENOF (GENVOYA) TABLET PO SCH (10:11)
[2022-10-14] MEDS: THIAMINE HCL 100 MG TABLET (FP) PO SCH (21:21)
[2022-10-14] MEDS: MELATONIN 5 MG TABLETS PO PRN (21:21)
[2022-10-14] MEDS: QUEtiapine FUMARATE 200 MG TABLET PO SCH (21:21)
[2022-10-14] MEDS: NICOTINE 10 MG CARTRIDGE (INHALER) IH PRN (21:24)
[2022-10-15] MEDS: predniSONE 5 MG TABLET (UD) PO SCH (10:02)
[2022-10-15] MEDS: PRENATAL VITAMINS W/ FOLIC ACID TABLET (FP) PO SCH (10:02)
[2022-10-15] MEDS: SERTRALINE HCL 50 MG TABLET (FP) PO SCH (10:02)
[2022-10-15] MEDS: ELVITEG/COB/EMTRI/TENOF (GENVOYA) TABLET PO SCH (10:03)
[2022-10-15] MEDS: NICOTINE 10 MG CARTRIDGE (INHALER) IH PRN (10:04)
[2022-10-15] MEDS: MAG HYDROX/AL HYDROX/SIMETH 30 ML UNIT-DOSE CUP PO PRN (12:27)
[2022-10-15] MEDS: MELATONIN 5 MG TABLETS PO PRN (21:27)
[2022-10-15] MEDS: QUEtiapine FUMARATE 200 MG TABLET PO SCH (21:27)
[2022-10-15] MEDS: THIAMINE HCL 100 MG TABLET (FP) PO SCH (21:27)
[2022-10-15] MEDS: QUEtiapine FUMARATE 100 MG TABLET (FP) PO SCH (21:42)
[2022-10-16] MEDS: NICOTINE 10 MG CARTRIDGE (INHALER) IH PRN (09:51)
[2022-10-16] MEDS: SERTRALINE HCL 50 MG TABLET (FP) PO SCH (09:51)
[2022-10-16] MEDS: ELVITEG/COB/EMTRI/TENOF (GENVOYA) TABLET PO SCH (09:52)
[2022-10-16] MEDS: predniSONE 5 MG TABLET (UD) PO SCH (09:52)
[2022-10-16] MEDS: PRENATAL VITAMINS W/ FOLIC ACID TABLET (FP) PO SCH (09:52)
[2022-10-16] MEDS: PANTOPRAZOLE 20 MG TABLET PO SCH (10:26)
[2022-10-16] MEDS: QUEtiapine FUMARATE 100 MG TABLET (FP) PO SCH (21:20)
[2022-10-16] MEDS: THIAMINE HCL 100 MG TABLET (FP) PO SCH (21:20)
[2022-10-16] MEDS: MELATONIN 5 MG TABLETS PO PRN (21:20)
[2022-10-17] MEDS: NICOTINE 10 MG CARTRIDGE (INHALER) IH PRN (09:46)
[2022-10-17] MEDS: SERTRALINE HCL 50 MG TABLET (FP) PO SCH (09:46)
[2022-10-17] MEDS: PANTOPRAZOLE 20 MG TABLET PO SCH (09:46)
[2022-10-17] MEDS: ELVITEG/COB/EMTRI/TENOF (GENVOYA) TABLET PO SCH (09:47)
[2022-10-17] MEDS: PRENATAL VITAMINS W/ FOLIC ACID TABLET (FP) PO SCH (09:47)
[2022-10-17] MEDS: predniSONE 5 MG TABLET (UD) PO SCH (09:47)
[2022-10-17] MEDS: MELATONIN 5 MG TABLETS PO PRN (21:34)
[2022-10-17] MEDS: THIAMINE HCL 100 MG TABLET (FP) PO SCH (21:34)
[2022-10-17] MEDS: QUEtiapine FUMARATE 100 MG TABLET (FP) PO SCH (21:35)
[2022-10-18] MEDS: PANTOPRAZOLE 20 MG TABLET PO SCH (09:52)
[2022-10-18] MEDS: PRENATAL VITAMINS W/ FOLIC ACID TABLET (FP) PO SCH (09:52)
[2022-10-18] MEDS: predniSONE 5 MG TABLET (UD) PO SCH (09:52)
[2022-10-18] MEDS: ELVITEG/COB/EMTRI/TENOF (GENVOYA) TABLET PO SCH (09:52)
[2022-10-18] MEDS: SERTRALINE HCL 50 MG TABLET (FP) PO SCH (09:52)
[2022-10-18] MEDS: NICOTINE 10 MG CARTRIDGE (INHALER) IH PRN (09:53)
[2022-10-18] MEDS: MELATONIN 5 MG TABLETS PO PRN (21:15)
[2022-10-18] MEDS: THIAMINE HCL 100 MG TABLET (FP) PO SCH (21:15)
[2022-10-18] MEDS: QUEtiapine FUMARATE 100 MG TABLET (FP) PO SCH (21:15)
[2022-10-19] MEDS: PRENATAL VITAMINS W/ FOLIC ACID TABLET (FP) PO SCH (09:43)
[2022-10-19] MEDS: NICOTINE 10 MG CARTRIDGE (INHALER) IH PRN (09:44)
[2022-10-19] MEDS: ELVITEG/COB/EMTRI/TENOF (GENVOYA) TABLET PO SCH (09:44)
[2022-10-19] MEDS: PANTOPRAZOLE 20 MG TABLET PO SCH (09:44)
[2022-10-19] MEDS: SERTRALINE HCL 50 MG TABLET (FP) PO SCH (09:44)
[2022-10-19] MEDS: predniSONE 5 MG TABLET (UD) PO SCH (09:44)
[2022-10-19] MEDS: MELATONIN 5 MG TABLETS PO PRN (21:33)
[2022-10-19] MEDS: QUEtiapine FUMARATE 100 MG TABLET (FP) PO SCH (21:33)
[2022-10-19] MEDS: THIAMINE HCL 100 MG TABLET (FP) PO SCH (21:34)
[2022-10-20] MEDS: PRENATAL VITAMINS W/ FOLIC ACID TABLET (FP) PO SCH (09:59)
[2022-10-20] MEDS: PANTOPRAZOLE 20 MG TABLET PO SCH (09:59)
[2022-10-20] MEDS: SERTRALINE HCL 50 MG TABLET (FP) PO SCH (09:59)
[2022-10-20] MEDS: predniSONE 5 MG TABLET (UD) PO SCH (09:59)
[2022-10-20] MEDS: NICOTINE 10 MG CARTRIDGE (INHALER) IH PRN (10:00)
[2022-10-20] MEDS: ELVITEG/COB/EMTRI/TENOF (GENVOYA) TABLET PO SCH (10:00)
[2022-10-20] MEDS: MELATONIN 5 MG TABLETS PO PRN (21:26)
[2022-10-20] MEDS: QUEtiapine FUMARATE 100 MG TABLET (FP) PO SCH (21:26)
[2022-10-20] MEDS: THIAMINE HCL 100 MG TABLET (FP) PO SCH (21:26)
[2022-10-21] MEDS: NICOTINE 10 MG CARTRIDGE (INHALER) IH PRN (09:46)
[2022-10-21] MEDS: PRENATAL VITAMINS W/ FOLIC ACID TABLET (FP) PO SCH (09:46)
[2022-10-21] MEDS: PANTOPRAZOLE 20 MG TABLET PO SCH (09:46)
[2022-10-21] MEDS: SERTRALINE HCL 50 MG TABLET (FP) PO SCH (09:46)
[2022-10-21] MEDS: predniSONE 5 MG TABLET (UD) PO SCH (09:47)
[2022-10-21] MEDS: ELVITEG/COB/EMTRI/TENOF (GENVOYA) TABLET PO SCH (09:47)
[2022-10-21] MEDS: MELATONIN 5 MG TABLETS PO PRN (21:15)
[2022-10-21] MEDS: THIAMINE HCL 100 MG TABLET (FP) PO SCH (21:15)
[2022-10-21] MEDS: QUEtiapine FUMARATE 100 MG TABLET (FP) PO SCH (21:15)
[2022-10-22] MEDS: PRENATAL VITAMINS W/ FOLIC ACID TABLET (FP) PO SCH (10:15)
[2022-10-22] MEDS: PANTOPRAZOLE 20 MG TABLET PO SCH (10:15)
[2022-10-22] MEDS: SERTRALINE HCL 50 MG TABLET (FP) PO SCH (10:16)
[2022-10-22] MEDS: predniSONE 5 MG TABLET (UD) PO SCH (10:16)
[2022-10-22] MEDS: ELVITEG/COB/EMTRI/TENOF (GENVOYA) TABLET PO SCH (10:16)
[2022-10-22] MEDS: NICOTINE 10 MG CARTRIDGE (INHALER) IH PRN (13:03)
[2022-10-22] MEDS: QUEtiapine FUMARATE 100 MG TABLET (FP) PO SCH (21:31)
[2022-10-22] MEDS: MELATONIN 5 MG TABLETS PO PRN (21:31)
[2022-10-22] MEDS: THIAMINE HCL 100 MG TABLET (FP) PO SCH (21:31)
[2022-10-23 07:59] VITALS: BP 115/78; PULSE 90; RESP 18; TEMP 97.8
[2022-10-23] MEDS: PANTOPRAZOLE 20 MG TABLET PO SCH (09:40)
[2022-10-23] MEDS: SERTRALINE HCL 50 MG TABLET (FP) PO SCH (09:40)
[2022-10-23] MEDS: PRENATAL VITAMINS W/ FOLIC ACID TABLET (FP) PO SCH (09:40)
[2022-10-23] MEDS: predniSONE 5 MG TABLET (UD) PO SCH (09:41)
[2022-10-23] MEDS: ELVITEG/COB/EMTRI/TENOF (GENVOYA) TABLET PO SCH (09:41)
== END 2022-10-23 09:59 | disposition home or self-care (01) | DRG 772 ==
LOC: YASAS 14:00 → Y5N 14:02
PROVIDERS: ADMIT Allergy & Immunology; ATTEND Allergy & Immunology
PROC: HZ42ZZZ Group Counseling for Substance Abuse Treatment, Cognitive-Behavioral (ICD-10-PCS; principal; 2022-10-02)
DX: F10.20 Alcohol dependence, uncomplicated (principal); F11.20 Opioid dependence, uncomplicated; F13.20 Sedative, hypnotic or anxiolytic dependence, uncomplicated; F14.20 Cocaine dependence, uncomplicated; F17.220 Nicotine dependence, chewing tobacco, uncomplicated; Z21 Asymptomatic human immunodeficiency virus [HIV] infection status; G47.00 Insomnia, unspecified; Z87.09 Personal history of other diseases of the respiratory system

== ENCOUNTER 2023-04-10 13:27 | Inpatient (IN) | payer OTHER ==
[2023-04-10 14:08] VITALS: BMI 26.1
[2023-04-10] MEDS ORDERED: LOPERAMIDE HCL 2 MG CAPSULE PO PRN (18:38)
[2023-04-10] MEDS ORDERED: NALOXONE HCL 0.4 MG/ML VIAL IM PRN (18:38)
[2023-04-10] MEDS ORDERED: BENZONATATE 200 MG CAPSULE PO PRN (18:38)
[2023-04-10] MEDS ORDERED: POLYETHYLENE GLYCOL (HEALTHYLAX) 3350 17 GM PACKET PO PRN (18:38)
[2023-04-10] MEDS ORDERED: NALOXONE HCL (KLOXXADO) 8 MG SPRAY NS PRN (18:38)
[2023-04-10] MEDS ORDERED: IBUPROFEN 600 MG TABLET (FP) PO PRN (18:38)
[2023-04-10] MEDS ORDERED: IBUPROFEN 400 MG TABLET (FP) PO PRN (18:38)
[2023-04-10] MEDS ORDERED: BENZOCAINE/MENTHOL (CHLORASEPTIC ) LOZENGE MM PRN (18:38)
[2023-04-10] MEDS ORDERED: guaiFENesin 600 MG TABLET.ER (FP) PO PRN (18:38)
[2023-04-10] MEDS ORDERED: MAGNESIUM HYDROX 2400MG/30ML ORAL SUSPENSION 30 ML CUP PO PRN (18:38)
[2023-04-10] MEDS ORDERED: MAG HYDROX/AL HYDROX/SIMETH 30 ML UNIT-DOSE CUP PO PRN (18:38)
[2023-04-10] MEDS: MELATONIN 5 MG TABLETS PO SCH (21:14)
[2023-04-10] MEDS: THIAMINE HCL 100 MG TABLET (FP) PO SCH (21:14)
[2023-04-11 09:46] LABS: HEMATOCRIT 42.1 % (35.4-49); HEMOGLOBIN 13.6 GM/dL (11.7-16.9); MCH 26.3 pg (25.7-33.7); MCHC 32.3 g/dl (32.0-35.9); MEAN CELL VOLUME 81.5 fl (80-96); MEAN PLT VOLUME 10.4 fl (7.5-11.1); PLATELET COUNT 126 10^3/uL (134-434); RBC 5.16 M/mm3 (4.00-5.60); RDW 14.7 % (11.9-15.9); WHITE BLOOD COUNT 4.2 K/mm3 (4.0-10.0)
[2023-04-11] MEDS: ASPIRIN 81 MG CHEWABLE TABLETS PO SCH (09:51)
[2023-04-11] MEDS: amLODIPine BESYLATE 5 MG TABLET (FP) PO SCH (09:51)
[2023-04-11] MEDS: PRENATAL VITAMINS W/ FOLIC ACID TABLET (FP) PO SCH (09:52)
[2023-04-11 10:09] LABS: CHLORIDE 108 mmol/L (98-107); POTASSIUM 4.5 mmol/L (3.5-5.1); SODIUM 142 mmol/L (136-145)
[2023-04-11 10:11] LABS: ANION GAP 4 mmol/L (4-13); CALCIUM 8.6 mg/dL (8.5-10.1); CO2 30 mmol/L (21-32); GLUCOSE,RANDOM 76 mg/dL (74-106)
[2023-04-11 10:12] LABS: ALBUMIN 2.6 g/dl (3.4-5.0); BLOOD UREA NITROGEN 12.4 mg/dL (7-18)
[2023-04-11 10:14] LABS: SGPT/ALT 45 U/L (13-61)
[2023-04-11 10:15] LABS: SGOT/AST 36 U/L (15-37)
[2023-04-11 10:16] LABS: BILIRUBIN,TOTAL 0.3 mg/dL (0.2-1); TOT PROT 5.8 g/dl (6.4-8.2)
[2023-04-11 10:17] LABS: ALK PHOS 48 U/L (45-117)
[2023-04-11] MEDS ORDERED: methaDONE HCL 10 MG TABLET PO SCH (11:30)
[2023-04-11] MEDS: methaDONE 80 MG, methaDONE 20 MG PO SCH (12:11)
[2023-04-11] MEDS: ELVITEG/COB/EMTRI/TENOF (GENVOYA) TABLET PO SCH (12:11)
[2023-04-11 13:18] LABS: SYPHILIS W/ RPR CONF NON-REACTIVE (NONREACTIVE)
[2023-04-11] MEDS: MELATONIN 5 MG TABLETS PO SCH (21:21)
[2023-04-11] MEDS: THIAMINE HCL 100 MG TABLET (FP) PO SCH (21:21)
[2023-04-11 21:36] LABS: PH,URINE 7.5 (5.0-8.0); URINE APPEARANCE CLEAR; URINE BILIRUBIN NEGATIVE (NEGATIVE); URINE COLOR YELLOW; URINE GLUCOSE (UA) NEGATIVE (NEGATIVE); URINE KETONE NEGATIVE (NEGATIVE); URINE LEUK ESTERASE NEGATIVE (NEGATIVE); URINE NITRITE NEGATIVE (NEGATIVE); URINE PROTEIN NEGATIVE (NEGATIVE)
[2023-04-12] MEDS: methaDONE 80 MG, methaDONE 20 MG PO SCH (06:10)
[2023-04-12] MEDS: PRENATAL VITAMINS W/ FOLIC ACID TABLET (FP) PO SCH (10:08)
[2023-04-12] MEDS: ASPIRIN 81 MG CHEWABLE TABLETS PO SCH (10:09)
[2023-04-12] MEDS: amLODIPine BESYLATE 5 MG TABLET (FP) PO SCH (10:10)
[2023-04-12] MEDS: ELVITEG/COB/EMTRI/TENOF (GENVOYA) TABLET PO SCH (10:10)
[2023-04-12] MEDS: THIAMINE HCL 100 MG TABLET (FP) PO SCH (21:29)
[2023-04-12] MEDS: MELATONIN 5 MG TABLETS PO SCH (21:29)
[2023-04-13] MEDS: methaDONE 80 MG, methaDONE 20 MG PO SCH (05:54)
[2023-04-13] MEDS: ELVITEG/COB/EMTRI/TENOF (GENVOYA) TABLET PO SCH (09:54)
[2023-04-13] MEDS: PRENATAL VITAMINS W/ FOLIC ACID TABLET (FP) PO SCH (09:54)
[2023-04-13] MEDS: amLODIPine BESYLATE 5 MG TABLET (FP) PO SCH (09:54)
[2023-04-13] MEDS: ASPIRIN 81 MG CHEWABLE TABLETS PO SCH (09:54)
[2023-04-13] MEDS: hydrOXYzine PAMOATE 25 MG CAPSULE (FP) PO PRN (09:55)
[2023-04-13] MEDS: THIAMINE HCL 100 MG TABLET (FP) PO SCH (21:07)
[2023-04-13] MEDS: MELATONIN 5 MG TABLETS PO SCH (21:07)
[2023-04-14] MEDS: methaDONE 80 MG, methaDONE 20 MG PO SCH (06:18)
[2023-04-14] MEDS: hydrOXYzine PAMOATE 25 MG CAPSULE (FP) PO PRN (06:19)
[2023-04-14] MEDS: amLODIPine BESYLATE 5 MG TABLET (FP) PO SCH (10:05)
[2023-04-14] MEDS: ELVITEG/COB/EMTRI/TENOF (GENVOYA) TABLET PO SCH (10:05)
[2023-04-14] MEDS: PRENATAL VITAMINS W/ FOLIC ACID TABLET (FP) PO SCH (10:05)
[2023-04-14] MEDS: ASPIRIN 81 MG CHEWABLE TABLETS PO SCH (10:05)
[2023-04-14] MEDS ORDERED: FLU VACCINE (FLULAVAL) PF 60 MCG/0.5 ML SYRINGE 2023-2024 IM ONE (12:00)
[2023-04-14] MEDS: THIAMINE HCL 100 MG TABLET (FP) PO SCH (21:19)
[2023-04-14] MEDS: MELATONIN 5 MG TABLETS PO SCH (21:19)
[2023-04-14] MEDS: QUEtiapine FUMARATE 100 MG TABLET (FP) PO SCH (21:19)
[2023-04-15] MEDS: hydrOXYzine PAMOATE 25 MG CAPSULE (FP) PO PRN ×3 (06:24→21:08)
[2023-04-15] MEDS: methaDONE 80 MG, methaDONE 20 MG PO SCH (06:25)
[2023-04-15] MEDS: PRENATAL VITAMINS W/ FOLIC ACID TABLET (FP) PO SCH (09:51)
[2023-04-15] MEDS: SERTRALINE HCL 50 MG TABLET (FP) PO SCH (09:51)
[2023-04-15] MEDS: amLODIPine BESYLATE 5 MG TABLET (FP) PO SCH (09:51)
[2023-04-15] MEDS: ASPIRIN 81 MG CHEWABLE TABLETS PO SCH (09:51)
[2023-04-15] MEDS: ELVITEG/COB/EMTRI/TENOF (GENVOYA) TABLET PO SCH (09:51)
[2023-04-15] MEDS: THIAMINE HCL 100 MG TABLET (FP) PO SCH (21:07)
[2023-04-15] MEDS: QUEtiapine FUMARATE 100 MG TABLET (FP) PO SCH (21:07)
[2023-04-15] MEDS: MELATONIN 5 MG TABLETS PO SCH (21:07)
[2023-04-16] MEDS: methaDONE 80 MG, methaDONE 20 MG PO SCH (06:06)
[2023-04-16] MEDS: hydrOXYzine PAMOATE 25 MG CAPSULE (FP) PO PRN (06:07)
[2023-04-16] MEDS: PRENATAL VITAMINS W/ FOLIC ACID TABLET (FP) PO SCH (10:03)
[2023-04-16] MEDS: ELVITEG/COB/EMTRI/TENOF (GENVOYA) TABLET PO SCH (10:03)
[2023-04-16] MEDS: SERTRALINE HCL 50 MG TABLET (FP) PO SCH (10:04)
[2023-04-16] MEDS: amLODIPine BESYLATE 5 MG TABLET (FP) PO SCH (10:04)
[2023-04-16] MEDS: ASPIRIN 81 MG CHEWABLE TABLETS PO SCH (10:04)
[2023-04-16] MEDS: THIAMINE HCL 100 MG TABLET (FP) PO SCH (21:21)
[2023-04-16] MEDS: MELATONIN 5 MG TABLETS PO SCH (21:21)
[2023-04-16] MEDS: QUEtiapine FUMARATE 100 MG TABLET (FP) PO SCH (21:21)
[2023-04-17] MEDS: methaDONE 80 MG, methaDONE 20 MG PO SCH (06:29)
[2023-04-17] MEDS: amLODIPine BESYLATE 5 MG TABLET (FP) PO SCH (10:02)
[2023-04-17] MEDS: SERTRALINE HCL 50 MG TABLET (FP) PO SCH (10:02)
[2023-04-17] MEDS: ASPIRIN 81 MG CHEWABLE TABLETS PO SCH (10:02)
[2023-04-17] MEDS: PRENATAL VITAMINS W/ FOLIC ACID TABLET (FP) PO SCH (10:02)
[2023-04-17] MEDS: ELVITEG/COB/EMTRI/TENOF (GENVOYA) TABLET PO SCH (10:02)
[2023-04-17] MEDS: THIAMINE HCL 100 MG TABLET (FP) PO SCH (21:09)
[2023-04-17] MEDS: MELATONIN 5 MG TABLETS PO SCH (21:09)
[2023-04-17] MEDS: QUEtiapine FUMARATE 100 MG TABLET (FP) PO SCH (21:10)
[2023-04-18] MEDS: methaDONE 80 MG, methaDONE 20 MG PO SCH (06:10)
[2023-04-18] MEDS: hydrOXYzine PAMOATE 25 MG CAPSULE (FP) PO PRN (06:11)
[2023-04-18] MEDS: ASPIRIN 81 MG CHEWABLE TABLETS PO SCH (09:52)
[2023-04-18] MEDS: ELVITEG/COB/EMTRI/TENOF (GENVOYA) TABLET PO SCH (09:52)
[2023-04-18] MEDS: SERTRALINE HCL 50 MG TABLET (FP) PO SCH (09:52)
[2023-04-18] MEDS: PRENATAL VITAMINS W/ FOLIC ACID TABLET (FP) PO SCH (09:52)
[2023-04-18] MEDS: amLODIPine BESYLATE 5 MG TABLET (FP) PO SCH (09:52)
[2023-04-18] MEDS: THIAMINE HCL 100 MG TABLET (FP) PO SCH (21:15)
[2023-04-18] MEDS: QUEtiapine FUMARATE 100 MG TABLET (FP) PO SCH (21:15)
[2023-04-18] MEDS: MELATONIN 5 MG TABLETS PO SCH (21:15)
[2023-04-19] MEDS: methaDONE 80 MG, methaDONE 20 MG PO SCH (06:17)
[2023-04-19] MEDS: PRENATAL VITAMINS W/ FOLIC ACID TABLET (FP) PO SCH (09:43)
[2023-04-19] MEDS: ASPIRIN 81 MG CHEWABLE TABLETS PO SCH (09:44)
[2023-04-19] MEDS: hydrOXYzine PAMOATE 25 MG CAPSULE (FP) PO PRN (09:44)
[2023-04-19] MEDS: SERTRALINE HCL 50 MG TABLET (FP) PO SCH (09:44)
[2023-04-19] MEDS: ELVITEG/COB/EMTRI/TENOF (GENVOYA) TABLET PO SCH (09:44)
[2023-04-19] MEDS: amLODIPine BESYLATE 5 MG TABLET (FP) PO SCH (09:44)
[2023-04-19] MEDS: COLLOIDAL OATMEAL 1 BAR EACH TP PRN (09:45)
[2023-04-19] MEDS: MELATONIN 5 MG TABLETS PO SCH (21:22)
[2023-04-19] MEDS: QUEtiapine FUMARATE 100 MG TABLET (FP) PO SCH (21:22)
[2023-04-19] MEDS: THIAMINE HCL 100 MG TABLET (FP) PO SCH (21:22)
[2023-04-20] MEDS: methaDONE 80 MG, methaDONE 20 MG PO SCH (05:58)
[2023-04-20] MEDS: ELVITEG/COB/EMTRI/TENOF (GENVOYA) TABLET PO SCH (09:57)
[2023-04-20] MEDS: SERTRALINE HCL 50 MG TABLET (FP) PO SCH (09:57)
[2023-04-20] MEDS: PRENATAL VITAMINS W/ FOLIC ACID TABLET (FP) PO SCH (09:57)
[2023-04-20] MEDS: ASPIRIN 81 MG CHEWABLE TABLETS PO SCH (09:57)
[2023-04-20] MEDS: amLODIPine BESYLATE 5 MG TABLET (FP) PO SCH (09:58)
[2023-04-20] MEDS: MELATONIN 5 MG TABLETS PO SCH (21:06)
[2023-04-20] MEDS: THIAMINE HCL 100 MG TABLET (FP) PO SCH (21:06)
[2023-04-20] MEDS: QUEtiapine FUMARATE 100 MG TABLET (FP) PO SCH (21:07)
[2023-04-21] MEDS: methaDONE 80 MG, methaDONE 20 MG PO SCH (06:16)
[2023-04-21] MEDS: hydrOXYzine PAMOATE 25 MG CAPSULE (FP) PO PRN (06:18)
[2023-04-21] MEDS: amLODIPine BESYLATE 5 MG TABLET (FP) PO SCH (10:49)
[2023-04-21] MEDS: PRENATAL VITAMINS W/ FOLIC ACID TABLET (FP) PO SCH (10:49)
[2023-04-21] MEDS: SERTRALINE HCL 50 MG TABLET (FP) PO SCH (10:49)
[2023-04-21] MEDS: ASPIRIN 81 MG CHEWABLE TABLETS PO SCH (10:49)
[2023-04-21] MEDS: ELVITEG/COB/EMTRI/TENOF (GENVOYA) TABLET PO SCH (10:49)
[2023-04-21] MEDS: ALBUTEROL SO4 HFA INHALER IH PRN (18:36)
[2023-04-21] MEDS: THIAMINE HCL 100 MG TABLET (FP) PO SCH (21:15)
[2023-04-21] MEDS: QUEtiapine FUMARATE 100 MG TABLET (FP) PO SCH (21:15)
[2023-04-21] MEDS: MELATONIN 5 MG TABLETS PO SCH (21:15)
[2023-04-22] MEDS: methaDONE 80 MG, methaDONE 20 MG PO SCH (06:12)
[2023-04-22] MEDS: hydrOXYzine PAMOATE 25 MG CAPSULE (FP) PO PRN ×2 (06:13→10:06)
[2023-04-22] MEDS: PRENATAL VITAMINS W/ FOLIC ACID TABLET (FP) PO SCH (10:04)
[2023-04-22] MEDS: amLODIPine BESYLATE 5 MG TABLET (FP) PO SCH (10:05)
[2023-04-22] MEDS: SERTRALINE HCL 50 MG TABLET (FP) PO SCH (10:05)
[2023-04-22] MEDS: ASPIRIN 81 MG CHEWABLE TABLETS PO SCH (10:05)
[2023-04-22] MEDS: ACETAMINOPHEN 325 MG TABLET (FP) PO PRN (10:06)
[2023-04-22] MEDS: ELVITEG/COB/EMTRI/TENOF (GENVOYA) TABLET PO SCH (10:06)
[2023-04-22] MEDS: MELATONIN 5 MG TABLETS PO SCH (21:10)
[2023-04-22] MEDS: QUEtiapine FUMARATE 100 MG TABLET (FP) PO SCH (21:10)
[2023-04-22] MEDS: THIAMINE HCL 100 MG TABLET (FP) PO SCH (21:10)
[2023-04-23] MEDS: methaDONE 80 MG, methaDONE 20 MG PO SCH (06:24)
[2023-04-23] MEDS: hydrOXYzine PAMOATE 25 MG CAPSULE (FP) PO PRN (06:25)
[2023-04-23] MEDS: PRENATAL VITAMINS W/ FOLIC ACID TABLET (FP) PO SCH (10:19)
[2023-04-23] MEDS: ASPIRIN 81 MG CHEWABLE TABLETS PO SCH (10:20)
[2023-04-23] MEDS: ELVITEG/COB/EMTRI/TENOF (GENVOYA) TABLET PO SCH (10:20)
[2023-04-23] MEDS: SERTRALINE HCL 50 MG TABLET (FP) PO SCH (10:20)
[2023-04-23] MEDS: amLODIPine BESYLATE 5 MG TABLET (FP) PO SCH (10:20)
[2023-04-23] MEDS: COLLOIDAL OATMEAL 1 BAR EACH TP PRN (10:20)
[2023-04-23] MEDS: THIAMINE HCL 100 MG TABLET (FP) PO SCH (21:14)
[2023-04-23] MEDS: QUEtiapine FUMARATE 100 MG TABLET (FP) PO SCH (21:14)
[2023-04-23] MEDS: MELATONIN 5 MG TABLETS PO SCH (21:14)
[2023-04-24] MEDS: methaDONE 80 MG, methaDONE 20 MG PO SCH (06:26)
[2023-04-24] MEDS: ASPIRIN 81 MG CHEWABLE TABLETS PO SCH (10:00)
[2023-04-24] MEDS: PRENATAL VITAMINS W/ FOLIC ACID TABLET (FP) PO SCH (10:00)
[2023-04-24] MEDS: ALBUTEROL SO4 HFA INHALER IH PRN (10:00)
[2023-04-24] MEDS: amLODIPine BESYLATE 5 MG TABLET (FP) PO SCH (10:01)
[2023-04-24] MEDS: ELVITEG/COB/EMTRI/TENOF (GENVOYA) TABLET PO SCH (10:01)
[2023-04-24] MEDS: SERTRALINE HCL 50 MG TABLET (FP) PO SCH (10:01)
[2023-04-24] MEDS: QUEtiapine FUMARATE 100 MG TABLET (FP) PO SCH (21:02)
[2023-04-24] MEDS: MELATONIN 5 MG TABLETS PO SCH (21:03)
[2023-04-24] MEDS: hydrOXYzine PAMOATE 25 MG CAPSULE (FP) PO PRN (21:03)
[2023-04-24] MEDS: THIAMINE HCL 100 MG TABLET (FP) PO SCH (21:03)
[2023-04-25] MEDS ORDERED: methaDONE HCL 40 MG DISPERSABLE TABLET PO SCH (06:00)
[2023-04-25] MEDS: methaDONE 80 MG, methaDONE 20 MG PO SCH (06:46)
[2023-04-25] MEDS: amLODIPine BESYLATE 5 MG TABLET (FP) PO SCH (09:36)
[2023-04-25] MEDS: ASPIRIN 81 MG CHEWABLE TABLETS PO SCH (09:36)
[2023-04-25] MEDS: ELVITEG/COB/EMTRI/TENOF (GENVOYA) TABLET PO SCH (09:36)
[2023-04-25] MEDS: PRENATAL VITAMINS W/ FOLIC ACID TABLET (FP) PO SCH (09:36)
[2023-04-25] MEDS: SERTRALINE HCL 50 MG TABLET (FP) PO SCH (09:36)
[2023-04-25] MEDS: hydrOXYzine PAMOATE 25 MG CAPSULE (FP) PO PRN (09:37)
[2023-04-25] MEDS: QUEtiapine FUMARATE 100 MG TABLET (FP) PO SCH (21:33)
[2023-04-25] MEDS: MELATONIN 5 MG TABLETS PO SCH (21:33)
[2023-04-25] MEDS: THIAMINE HCL 100 MG TABLET (FP) PO SCH (21:33)
[2023-04-26] MEDS: methaDONE 80 MG, methaDONE 20 MG PO SCH (05:59)
[2023-04-26] MEDS: COLLOIDAL OATMEAL 1 BAR EACH TP PRN (09:55)
[2023-04-26] MEDS: PRENATAL VITAMINS W/ FOLIC ACID TABLET (FP) PO SCH (09:55)
[2023-04-26] MEDS: SERTRALINE HCL 50 MG TABLET (FP) PO SCH (09:56)
[2023-04-26] MEDS: ELVITEG/COB/EMTRI/TENOF (GENVOYA) TABLET PO SCH (09:56)
[2023-04-26] MEDS: amLODIPine BESYLATE 5 MG TABLET (FP) PO SCH (09:56)
[2023-04-26] MEDS: ASPIRIN 81 MG CHEWABLE TABLETS PO SCH (09:56)
[2023-04-26] MEDS: ACETAMINOPHEN 325 MG TABLET (FP) PO PRN (09:57)
[2023-04-26] MEDS: hydrOXYzine PAMOATE 25 MG CAPSULE (FP) PO PRN (09:57)
[2023-04-26] MEDS ORDERED: methaDONE HCL 10 MG TABLET PO SCH (10:15)
[2023-04-26] MEDS ORDERED: methaDONE 80 MG, methaDONE 20 MG PO SCH (10:30)
[2023-04-26] MEDS: THIAMINE HCL 100 MG TABLET (FP) PO SCH (21:22)
[2023-04-26] MEDS: MELATONIN 5 MG TABLETS PO SCH (21:22)
[2023-04-26] MEDS: QUEtiapine FUMARATE 100 MG TABLET (FP) PO SCH (21:23)
[2023-04-27] MEDS: methaDONE 80 MG, methaDONE 20 MG PO SCH (06:13)
[2023-04-27] MEDS: hydrOXYzine PAMOATE 25 MG CAPSULE (FP) PO PRN (06:14)
[2023-04-27] MEDS: PRENATAL VITAMINS W/ FOLIC ACID TABLET (FP) PO SCH (09:51)
[2023-04-27] MEDS: ASPIRIN 81 MG CHEWABLE TABLETS PO SCH (09:51)
[2023-04-27] MEDS: SERTRALINE HCL 50 MG TABLET (FP) PO SCH (09:51)
[2023-04-27] MEDS: amLODIPine BESYLATE 5 MG TABLET (FP) PO SCH (09:51)
[2023-04-27] MEDS: ELVITEG/COB/EMTRI/TENOF (GENVOYA) TABLET PO SCH (09:51)
[2023-04-27 10:54] LABS: BASO % 0.5 % (0-2.0); EOS % 2.5 % (0-4.5); HEMATOCRIT 43.4 % (35.4-49); HEMOGLOBIN 13.8 GM/dL (11.7-16.9); LYMPH % 26.9 % (8-40); MCH 26.2 pg (25.7-33.7); MCHC 31.9 g/dl (32.0-35.9); MEAN CELL VOLUME 82.2 fl (80-96); MEAN PLT VOLUME 9.7 fl (7.5-11.1); MONO % 7.6 % (3.8-10.2); NEUT % 62.5 % (42.8-82.8); PLATELET COUNT 163 10^3/uL (134-434); POTASSIUM 4.7 mmol/L (3.5-5.1); RBC 5.28 M/mm3 (4.00-5.60); RDW 14.6 % (11.9-15.9); WHITE BLOOD COUNT 4.9 K/mm3 (4.0-10.0)
[2023-04-27 11:08] LABS: ALBUMIN 3.1 g/dl (3.4-5.0); BLOOD UREA NITROGEN 14.9 mg/dL (7-18); CALCIUM 8.8 mg/dL (8.5-10.1); MAGNESIUM 2.4 mg/dL (1.8-2.4)
[2023-04-27 11:12] LABS: BILIRUBIN,TOTAL 0.6 mg/dL (0.2-1); CREATININE 1.2 mg/dL (0.55-1.3); TOT PROT 6.7 g/dl (6.4-8.2)
[2023-04-27] MEDS: LACTULOSE 20 GM/30 ML UDC (FOR ORAL USE ONLY) PO SCH ×2 (13:43→21:20)
[2023-04-27] MEDS: MELATONIN 5 MG TABLETS PO SCH (21:19)
[2023-04-27] MEDS: THIAMINE HCL 100 MG TABLET (FP) PO SCH (21:19)
[2023-04-27] MEDS: QUEtiapine FUMARATE 100 MG TABLET (FP) PO SCH (21:19)
[2023-04-28] MEDS: LACTULOSE 20 GM/30 ML UDC (FOR ORAL USE ONLY) PO SCH ×3 (06:05→21:12)
[2023-04-28] MEDS: methaDONE 80 MG, methaDONE 20 MG PO SCH (06:07)
[2023-04-28] MEDS: SERTRALINE HCL 50 MG TABLET (FP) PO SCH (10:16)
[2023-04-28] MEDS: ELVITEG/COB/EMTRI/TENOF (GENVOYA) TABLET PO SCH (10:16)
[2023-04-28] MEDS: PRENATAL VITAMINS W/ FOLIC ACID TABLET (FP) PO SCH (10:16)
[2023-04-28] MEDS: ASPIRIN 81 MG CHEWABLE TABLETS PO SCH (10:16)
[2023-04-28] MEDS: amLODIPine BESYLATE 5 MG TABLET (FP) PO SCH (10:16)
[2023-04-28] MEDS: ALBUTEROL SO4 HFA INHALER IH PRN (10:17)
[2023-04-28] MEDS: THIAMINE HCL 100 MG TABLET (FP) PO SCH (21:11)
[2023-04-28] MEDS: MELATONIN 5 MG TABLETS PO SCH (21:12)
[2023-04-28] MEDS: QUEtiapine FUMARATE 100 MG TABLET (FP) PO SCH (21:12)
[2023-04-29] MEDS: LACTULOSE 20 GM/30 ML UDC (FOR ORAL USE ONLY) PO SCH ×3 (05:58→21:14)
[2023-04-29] MEDS: methaDONE 80 MG, methaDONE 20 MG PO SCH (05:59)
[2023-04-29] MEDS: SERTRALINE HCL 50 MG TABLET (FP) PO SCH (09:27)
[2023-04-29] MEDS: ELVITEG/COB/EMTRI/TENOF (GENVOYA) TABLET PO SCH (09:27)
[2023-04-29] MEDS: ASPIRIN 81 MG CHEWABLE TABLETS PO SCH (09:27)
[2023-04-29] MEDS: amLODIPine BESYLATE 5 MG TABLET (FP) PO SCH (09:28)
[2023-04-29] MEDS: PRENATAL VITAMINS W/ FOLIC ACID TABLET (FP) PO SCH (09:28)
[2023-04-29] MEDS: QUEtiapine FUMARATE 100 MG TABLET (FP) PO SCH (21:14)
[2023-04-29] MEDS: THIAMINE HCL 100 MG TABLET (FP) PO SCH (21:14)
[2023-04-29] MEDS: MELATONIN 5 MG TABLETS PO SCH (21:14)
[2023-04-30] MEDS: LACTULOSE 20 GM/30 ML UDC (FOR ORAL USE ONLY) PO SCH ×3 (06:15→21:17)
[2023-04-30] MEDS: methaDONE 80 MG, methaDONE 20 MG PO SCH (06:15)
[2023-04-30] MEDS: ASPIRIN 81 MG CHEWABLE TABLETS PO SCH (09:46)
[2023-04-30] MEDS: ELVITEG/COB/EMTRI/TENOF (GENVOYA) TABLET PO SCH (09:46)
[2023-04-30] MEDS: SERTRALINE HCL 50 MG TABLET (FP) PO SCH (09:46)
[2023-04-30] MEDS: amLODIPine BESYLATE 5 MG TABLET (FP) PO SCH (09:46)
[2023-04-30] MEDS: PRENATAL VITAMINS W/ FOLIC ACID TABLET (FP) PO SCH (09:46)
[2023-04-30] MEDS: ALBUTEROL SO4 HFA INHALER IH PRN (13:31)
[2023-04-30] MEDS: QUEtiapine FUMARATE 100 MG TABLET (FP) PO SCH (21:17)
[2023-04-30] MEDS: MELATONIN 5 MG TABLETS PO SCH (21:17)
[2023-04-30] MEDS: THIAMINE HCL 100 MG TABLET (FP) PO SCH (21:17)
[2023-05-01] MEDS: LACTULOSE 20 GM/30 ML UDC (FOR ORAL USE ONLY) PO SCH ×3 (06:25→21:16)
[2023-05-01] MEDS: methaDONE 80 MG, methaDONE 20 MG PO SCH (06:40)
[2023-05-01] MEDS: ALBUTEROL SO4 HFA INHALER IH PRN (10:25)
[2023-05-01] MEDS: PRENATAL VITAMINS W/ FOLIC ACID TABLET (FP) PO SCH (10:25)
[2023-05-01] MEDS: SERTRALINE HCL 50 MG TABLET (FP) PO SCH (10:25)
[2023-05-01] MEDS: amLODIPine BESYLATE 5 MG TABLET (FP) PO SCH (10:25)
[2023-05-01] MEDS: ASPIRIN 81 MG CHEWABLE TABLETS PO SCH (10:25)
[2023-05-01] MEDS: ELVITEG/COB/EMTRI/TENOF (GENVOYA) TABLET PO SCH (10:25)
[2023-05-01] MEDS: THIAMINE HCL 100 MG TABLET (FP) PO SCH (21:16)
[2023-05-01] MEDS: MELATONIN 5 MG TABLETS PO SCH (21:16)
[2023-05-01] MEDS: QUEtiapine FUMARATE 100 MG TABLET (FP) PO SCH (21:16)
[2023-05-02] MEDS: LACTULOSE 20 GM/30 ML UDC (FOR ORAL USE ONLY) PO SCH ×3 (05:58→21:14)
[2023-05-02] MEDS: methaDONE 80 MG, methaDONE 20 MG PO SCH (05:59)
[2023-05-02] MEDS: ASPIRIN 81 MG CHEWABLE TABLETS PO SCH (10:03)
[2023-05-02] MEDS: amLODIPine BESYLATE 5 MG TABLET (FP) PO SCH (10:03)
[2023-05-02] MEDS: PRENATAL VITAMINS W/ FOLIC ACID TABLET (FP) PO SCH (10:03)
[2023-05-02] MEDS: SERTRALINE HCL 50 MG TABLET (FP) PO SCH (10:03)
[2023-05-02] MEDS: ELVITEG/COB/EMTRI/TENOF (GENVOYA) TABLET PO SCH (10:04)
[2023-05-02] MEDS: THIAMINE HCL 100 MG TABLET (FP) PO SCH (21:13)
[2023-05-02] MEDS: QUEtiapine FUMARATE 100 MG TABLET (FP) PO SCH (21:13)
[2023-05-02] MEDS: MELATONIN 5 MG TABLETS PO SCH (21:13)
[2023-05-03] MEDS: LACTULOSE 20 GM/30 ML UDC (FOR ORAL USE ONLY) PO SCH ×3 (06:33→21:27)
[2023-05-03] MEDS: methaDONE 80 MG, methaDONE 20 MG PO SCH (06:34)
[2023-05-03 09:07] VITALS: RESP 18
[2023-05-03] MEDS: amLODIPine BESYLATE 5 MG TABLET (FP) PO SCH (09:32)
[2023-05-03] MEDS: ELVITEG/COB/EMTRI/TENOF (GENVOYA) TABLET PO SCH (09:32)
[2023-05-03] MEDS: SERTRALINE HCL 50 MG TABLET (FP) PO SCH (09:32)
[2023-05-03] MEDS: ASPIRIN 81 MG CHEWABLE TABLETS PO SCH (09:32)
[2023-05-03] MEDS: PRENATAL VITAMINS W/ FOLIC ACID TABLET (FP) PO SCH (09:32)
[2023-05-03] MEDS: MELATONIN 5 MG TABLETS PO SCH (21:27)
[2023-05-03] MEDS: QUEtiapine FUMARATE 100 MG TABLET (FP) PO SCH (21:27)
[2023-05-03] MEDS: THIAMINE HCL 100 MG TABLET (FP) PO SCH (21:27)
[2023-05-04] MEDS: LACTULOSE 20 GM/30 ML UDC (FOR ORAL USE ONLY) PO SCH (06:03)
[2023-05-04] MEDS: methaDONE 80 MG, methaDONE 20 MG PO SCH (06:04)
[2023-05-04 06:24] VITALS: TEMP 97.8
[2023-05-04 09:11] VITALS: BP 107/73; PULSE 106
[2023-05-04] MEDS: SERTRALINE HCL 50 MG TABLET (FP) PO SCH (09:21)
[2023-05-04] MEDS: ASPIRIN 81 MG CHEWABLE TABLETS PO SCH (09:21)
[2023-05-04] MEDS: ELVITEG/COB/EMTRI/TENOF (GENVOYA) TABLET PO SCH (09:21)
[2023-05-04] MEDS: PRENATAL VITAMINS W/ FOLIC ACID TABLET (FP) PO SCH (09:21)
[2023-05-04] MEDS: amLODIPine BESYLATE 5 MG TABLET (FP) PO SCH (09:21)
[2023-05-04] MEDS: ALBUTEROL SO4 HFA INHALER IH PRN (09:22)
== END 2023-05-04 10:33 | disposition home or self-care (01) | DRG 772 ==
LOC: SUATTDRO 13:27 → YASAS 13:27 → Y3W 18:01
PROVIDERS: ADMIT Allergy & Immunology; ATTEND Psychiatry & Neurology Pain Medicine
PROC: HZ42ZZZ Group Counseling for Substance Abuse Treatment, Cognitive-Behavioral (ICD-10-PCS; principal; 2023-04-10)
DX: F10.20 Alcohol dependence, uncomplicated (principal); F13.20 Sedative, hypnotic or anxiolytic dependence, uncomplicated; F11.20 Opioid dependence, uncomplicated; F14.20 Cocaine dependence, uncomplicated; F17.210 Nicotine dependence, cigarettes, uncomplicated; F31.9 Bipolar disorder, unspecified; Z21 Asymptomatic human immunodeficiency virus [HIV] infection status; E72.20 Disorder of urea cycle metabolism, unspecified; E78.00 Pure hypercholesterolemia, unspecified; G62.9 Polyneuropathy, unspecified; I10 Essential (primary) hypertension; J45.30 Mild persistent asthma, uncomplicated; Z86.19 Personal history of other infectious and parasitic diseases
CPT/HCPCS: 36415; 80053; 80307; 81003; 82140; 83735; 85025; 85027; 86780; 86803; 87522; 87635; 90686; G0008

== ENCOUNTER 2024-01-13 13:27 | Inpatient (IN) | payer OTHER ==
[2024-01-13 13:56] VITALS: BMI 24.8
[2024-01-13] MEDS ORDERED: ACETAMINOPHEN 325 MG TABLET (FP) PO PRN (16:11)
[2024-01-13] MEDS ORDERED: BENZONATATE 200 MG CAPSULE PO PRN (16:11)
[2024-01-13] MEDS ORDERED: IBUPROFEN 400 MG TABLET (FP) PO PRN (16:11)
[2024-01-13] MEDS ORDERED: BENZOCAINE/MENTHOL (CHLORASEPTIC ) LOZENGE MM PRN (16:11)
[2024-01-13] MEDS ORDERED: NALOXONE HCL 0.4 MG/ML VIAL IM PRN (16:11)
[2024-01-13] MEDS ORDERED: NALOXONE (NARCAN) HCL 4 MG/0.1 ML SPRAY NS PRN (16:11)
[2024-01-13] MEDS ORDERED: LOPERAMIDE HCL 2 MG CAPSULE PO PRN (16:11)
[2024-01-13] MEDS ORDERED: guaiFENesin 600 MG TABLET.ER (FP) PO PRN (16:11)
[2024-01-13] MEDS ORDERED: MAGNESIUM HYDROX 2400MG/30ML ORAL SUSPENSION 30 ML CUP PO PRN (16:11)
[2024-01-13] MEDS ORDERED: POLYETHYLENE GLYCOL (HEALTHYLAX) 3350 17 GM PACKET PO PRN (16:11)
[2024-01-13] MEDS: PRENATAL VITAMINS W/ FOLIC ACID TABLET (FP) PO SCH (17:47)
[2024-01-13] MEDS: amLODIPine BESYLATE 5 MG TABLET (FP) PO ONE (18:04)
[2024-01-13 19:15] LABS: PH,URINE 5.5 (5.0-8.0); URINE APPEARANCE CLEAR; URINE BILIRUBIN NEGATIVE (NEGATIVE); URINE COLOR YELLOW; URINE GLUCOSE (UA) NEGATIVE (NEGATIVE); URINE KETONE NEGATIVE (NEGATIVE); URINE LEUK ESTERASE NEGATIVE (NEGATIVE); URINE NITRITE NEGATIVE (NEGATIVE); URINE PROTEIN NEGATIVE (NEGATIVE)
[2024-01-13] MEDS: hydrOXYzine PAMOATE 25 MG CAPSULE (FP) PO PRN (22:05)
[2024-01-13] MEDS: THIAMINE 100 MG TABLET PO SCH (22:05)
[2024-01-13] MEDS: MELATONIN 5 MG TABLETS PO SCH (22:05)
[2024-01-14] MEDS ORDERED: methaDONE HCL 10 MG TABLET PO SCH (10:15)
[2024-01-14] MEDS: methaDONE 80 MG, methaDONE 10 MG PO SCH (10:45)
[2024-01-14 11:18] LABS: HEMATOCRIT 38.3 % (35.4-49); HEMOGLOBIN 12.5 GM/dL (11.7-16.9); MCH 27.6 pg (25.7-33.7); MCHC 32.5 g/dl (32.0-35.9); MEAN CELL VOLUME 84.8 fl (80-96); MEAN PLT VOLUME 9.8 fl (7.5-11.1); PLATELET COUNT 144 10^3/uL (134-434); RBC 4.52 M/mm3 (4.00-5.60); RDW 15.2 % (11.9-15.9); WHITE BLOOD COUNT 4.3 K/mm3 (4.0-10.0)
[2024-01-14 11:21] LABS: CHLORIDE 107 mmol/L (98-107); POTASSIUM 3.9 mmol/L (3.5-5.1); SODIUM 142 mmol/L (136-145)
[2024-01-14 11:30] LABS: ALBUMIN 2.5 g/dl (3.4-5.0); BLOOD UREA NITROGEN 12.8 mg/dL (7-18); GLUCOSE,RANDOM 92 mg/dL (74-106)
[2024-01-14 11:32] LABS: ANION GAP 3 mmol/L (4-13); CALCIUM 8.5 mg/dL (8.5-10.1); CO2 32 mmol/L (21-32)
[2024-01-14 11:34] LABS: CREATININE 0.8 mg/dL (0.55-1.3); SGOT/AST 31 U/L (15-37); SGPT/ALT 65 U/L (13-61)
[2024-01-14 11:35] LABS: BILIRUBIN,TOTAL 0.4 mg/dL (0.2-1); TOT PROT 5.7 g/dl (6.4-8.2)
[2024-01-14 11:37] LABS: ALK PHOS 93 U/L (45-117)
[2024-01-14] MEDS: amLODIPine BESYLATE 5 MG TABLET (FP) PO SCH (12:04)
[2024-01-14] MEDS: ELVITEG/COB/EMTRI/TENOF (GENVOYA) TABLET PO SCH (12:04)
[2024-01-14] MEDS: ASPIRIN 81 MG CHEWABLE TABLETS PO SCH (12:04)
[2024-01-14 12:22] LABS: SYPHILIS W/ RPR CONF NON-REACTIVE (NONREACTIVE)
[2024-01-14] MEDS ORDERED: TUBERCULIN PPD 5 TU/0.1ML VIAL ID ONE (14:25)
[2024-01-14] MEDS: ALBUTEROL SO4 HFA INHALER IH PRN (21:23)
[2024-01-14] MEDS: SERTRALINE HCL 50 MG TABLET (FP) PO SCH (21:24)
[2024-01-14] MEDS: MIRTAZAPINE 30 MG TABLET PO SCH (21:24)
[2024-01-14] MEDS: busPIRone HCL 10 MG TABLET (FP) PO SCH (21:24)
[2024-01-15] MEDS: BICTEGRAV/EMTRICIT/TENOFOV (BIKTARVY) 50-200-25 MG TABLET PO SCH (12:28)
[2024-01-17] MEDS: ELVITEG/COB/EMTRI/TENOF (GENVOYA) TABLET PO SCH (10:59)
[2024-01-17] MEDS: GABAPENTIN 400 MG CAPSULE PO SCH (14:09)
[2024-01-18] MEDS: BICTEGRAV/EMTRICIT/TENOFOV (BIKTARVY) 50-200-25 MG TABLET PO SCH (08:02)
[2024-01-19] MEDS: BICTEGRAV/EMTRICIT/TENOFOV (BIKTARVY) 50-200-25 MG TABLET PO SCH (06:38)
[2024-01-19] MEDS ORDERED: NICOTINE 7 MG/24 HOURS TOPICAL PATCH TD PRN (15:15)
[2024-01-19] MEDS ORDERED: [UNRECOGNIZED DRUG - OTHER] IH SCH (15:30)
[2024-01-19] MEDS: BUDESONIDE/FORMETEROL FUMARATE 160/4.5 mcg INHALER IH SCH (20:57)
[2024-01-19] MEDS: NICOTINE POLACRILEX 4 MG GUM BUC PRN (21:31)
[2024-01-20] MEDS: MAG HYDROX/AL HYDROX/SIMETH 30 ML UNIT-DOSE CUP PO PRN (10:00)
[2024-01-25] MEDS: IBUPROFEN 600 MG TABLET (FP) PO PRN (21:59)
[2024-01-27] MEDS: MELATONIN 5 MG TABLETS PO SCH (21:33)
[2024-01-29] MEDS: NICOTINE POLACRILEX 4 MG LOZENGE BC PRN (10:15)
[2024-01-30 06:49] VITALS: RESP 18
[2024-02-02 06:54] VITALS: BP 139/80; PULSE 63; TEMP 97.2
== END 2024-02-02 10:20 | disposition home or self-care (01) | DRG 772 ==
LOC: YASAS 13:27 → Y3NR 17:23 → Y5N 01-14 12:36
PROVIDERS: ADMIT Allergy & Immunology; ATTEND Psychiatry & Neurology Pain Medicine
PROC: HZ42ZZZ Group Counseling for Substance Abuse Treatment, Cognitive-Behavioral (ICD-10-PCS; principal; 2024-01-13)
DX: F10.20 Alcohol dependence, uncomplicated (principal); F11.20 Opioid dependence, uncomplicated; F13.20 Sedative, hypnotic or anxiolytic dependence, uncomplicated; F14.20 Cocaine dependence, uncomplicated; F17.210 Nicotine dependence, cigarettes, uncomplicated; F31.9 Bipolar disorder, unspecified; F19.282 Other psychoactive substance dependence with psychoactive substance-induced sleep disorder; F39 Unspecified mood [affective] disorder; Z21 Asymptomatic human immunodeficiency virus [HIV] infection status; E78.5 Hyperlipidemia, unspecified; I10 Essential (primary) hypertension; Z79.899 Other long term (current) drug therapy; Z86.19 Personal history of other infectious and parasitic diseases; Z62.810 Personal history of physical and sexual abuse in childhood; Z91.410 Personal history of adult physical and sexual abuse; Z63.8 Other specified problems related to primary support group; Z63.0 Problems in relationship with spouse or partner; Z59.00 Homelessness unspecified
CPT/HCPCS: 36415; 80053; 80305; 80307; 81003; 85027; 86780; 86803; 87522; 93005; 93010

== ENCOUNTER 2024-03-15 16:09 | Inpatient (IN) | payer OTHER ==
[2024-03-15 16:58] VITALS: BMI 24.5
[2024-03-15] MEDS ORDERED: LOPERAMIDE HCL 2 MG CAPSULE PO PRN (21:40)
[2024-03-15] MEDS ORDERED: POLYETHYLENE GLYCOL (HEALTHYLAX) 3350 17 GM PACKET PO PRN (21:40)
[2024-03-15] MEDS ORDERED: NALOXONE (NYS OPIOID OVERDOSE PROGRAM) 4 MG/0.1 ML SPRAY NS PRN (21:40)
[2024-03-15] MEDS ORDERED: IBUPROFEN 400 MG TABLET (FP) PO PRN (21:40)
[2024-03-15] MEDS ORDERED: ONDANSETRON *ODT* 4 MG TABLET SL PRN (21:40)
[2024-03-15] MEDS ORDERED: NALOXONE (NARCAN) HCL 4 MG/0.1 ML SPRAY NS PRN (21:40)
[2024-03-15] MEDS ORDERED: MAGNESIUM HYDROX 2400MG/30ML ORAL SUSPENSION 30 ML CUP PO PRN (21:40)
[2024-03-15] MEDS ORDERED: ACETAMINOPHEN 325 MG TABLET (FP) PO PRN (21:40)
[2024-03-15] MEDS ORDERED: NICOTINE POLACRILEX 2 MG GUM BUC PRN (21:40)
[2024-03-15] MEDS ORDERED: guaiFENesin 600 MG TABLET.ER (FP) PO PRN (21:40)
[2024-03-15] MEDS ORDERED: BENZONATATE 200 MG CAPSULE PO PRN (21:40)
[2024-03-15] MEDS ORDERED: DICYCLOMINE HCL 10 MG CAPSULE PO PRN (21:40)
[2024-03-15] MEDS ORDERED: BISMUTH SUBSALICYLATE 524 MG/30 ML PO PRN (21:40)
[2024-03-15] MEDS ORDERED: BENZOCAINE/MENTHOL (CHLORASEPTIC ) LOZENGE MM PRN (21:40)
[2024-03-15] MEDS: MELATONIN 5 MG TABLETS PO SCH (23:48)
[2024-03-15] MEDS: THIAMINE 100 MG TABLET PO SCH (23:48)
[2024-03-16] MEDS ORDERED: methaDONE HCL 10 MG TABLET PO ONE (08:15)
[2024-03-16] MEDS: methaDONE 80 MG, methaDONE 10 MG PO ONE (08:49)
[2024-03-16] MEDS ORDERED: diazePAM 5 MG TABLET PO PRN (09:41)
[2024-03-16] MEDS ORDERED: ALBUTEROL SO4 HFA INHALER IH PRN (09:43)
[2024-03-16] MEDS: diazePAM 5 MG TABLET PO ONE (10:39)
[2024-03-16] MEDS: PRENATAL VITAMINS W/ FOLIC ACID TABLET (FP) PO SCH (10:47)
[2024-03-16] MEDS: GABAPENTIN 400 MG CAPSULE PO SCH (10:47)
[2024-03-16] MEDS: BICTEGRAV/EMTRICIT/TENOFOV (BIKTARVY) 50-200-25 MG TABLET PO SCH (10:47)
[2024-03-16] MEDS: ASPIRIN 81 MG CHEWABLE TABLETS PO SCH (10:47)
[2024-03-16] MEDS: amLODIPine BESYLATE 5 MG TABLET (FP) PO SCH (10:47)
[2024-03-16] MEDS: BUDESONIDE/FORMETEROL FUMARATE 160/4.5 mcg INHALER IH SCH (10:49)
[2024-03-16] MEDS: NICOTINE 14 MG/24 HOURS TOPICAL PATCH TD SCH (10:52)
[2024-03-16] MEDS: SERTRALINE HCL 50 MG TABLET (FP) PO SCH (10:52)
[2024-03-16 11:59] LABS: HEMATOCRIT 39.8 % (35.4-49); MCH 26.8 pg (25.7-33.7); MCHC 32.8 g/dl (32.0-35.9); MEAN CELL VOLUME 81.6 fl (80-96); PLATELET COUNT 132 10^3/uL (134-434); RBC 4.87 M/mm3 (4.00-5.60); RDW 15.9 % (11.9-15.9); WHITE BLOOD COUNT 3.1 K/mm3 (4.0-10.0)
[2024-03-16 12:03] LABS: CHLORIDE 104 mmol/L (98-107); POTASSIUM 3.5 mmol/L (3.5-5.1); SODIUM 142 mmol/L (136-145)
[2024-03-16 12:05] LABS: ALBUMIN 2.9 g/dl (3.4-5.0); ANION GAP 6 mmol/L (4-13); BLOOD UREA NITROGEN 12.9 mg/dL (7-18); CALCIUM 8.9 mg/dL (8.5-10.1); CO2 32 mmol/L (21-32); GLUCOSE,RANDOM 114 mg/dL (74-106)
[2024-03-16 12:08] LABS: CREATININE 1.1 mg/dL (0.55-1.3); SGOT/AST 27 U/L (15-37); SGPT/ALT 37 U/L (13-61)
[2024-03-16 12:10] LABS: BILIRUBIN,TOTAL 0.4 mg/dL (0.2-1)
[2024-03-16 12:11] LABS: ALK PHOS 114 U/L (45-117)
[2024-03-16] MEDS: [UNRECOGNIZED DRUG - OTHER] IH SCH (14:22)
[2024-03-16] MEDS: hydrOXYzine PAMOATE 25 MG CAPSULE (FP) PO PRN (17:27)
[2024-03-16] MEDS: IBUPROFEN 600 MG TABLET (FP) PO PRN (17:27)
[2024-03-16] MEDS: METHOCARBAMOL 500 MG TABLET PO PRN (17:27)
[2024-03-16] MEDS: diazePAM 5 MG TABLET PO SCH (17:28)
[2024-03-16] MEDS: SUVOREXANT 10 MG TABLET PO PRN (22:19)
[2024-03-16] MEDS: QUEtiapine FUMARATE 100 MG TABLET (FP) PO SCH (22:19)
[2024-03-17] MEDS: methaDONE 80 MG, methaDONE 10 MG PO SCH (05:43)
[2024-03-17] MEDS ORDERED: methaDONE HCL 10 MG TABLET PO SCH (06:00)
[2024-03-17] MEDS: MAG HYDROX/AL HYDROX/SIMETH 30 ML UNIT-DOSE CUP PO PRN (22:17)
[2024-03-18] MEDS: diazePAM 5 MG TABLET PO SCH (05:39)
[2024-03-19] MEDS: diazePAM 5 MG TABLET PO SCH (05:41)
[2024-03-20] MEDS: diazePAM 5 MG TABLET PO ONE (05:38)
[2024-03-21 09:29] VITALS: BP 118/74; PULSE 90; RESP 18; TEMP 97.8
== END 2024-03-21 12:06 | disposition other institution (70) | DRG 773 ==
LOC: YASAS 16:09 → Y6N 22:48
PROVIDERS: ADMIT Allergy & Immunology; ATTEND Surgery
PROC: HZ2ZZZZ Detoxification Services for Substance Abuse Treatment (ICD-10-PCS; principal; 2024-03-15)
DX: F10.230 Alcohol dependence with withdrawal, uncomplicated (principal); F11.20 Opioid dependence, uncomplicated; F13.20 Sedative, hypnotic or anxiolytic dependence, uncomplicated; F14.20 Cocaine dependence, uncomplicated; F17.210 Nicotine dependence, cigarettes, uncomplicated; F19.282 Other psychoactive substance dependence with psychoactive substance-induced sleep disorder; F31.9 Bipolar disorder, unspecified; B20 Human immunodeficiency virus [HIV] disease; G99.0 Autonomic neuropathy in diseases classified elsewhere; I10 Essential (primary) hypertension; E78.5 Hyperlipidemia, unspecified; J45.30 Mild persistent asthma, uncomplicated; Z62.810 Personal history of physical and sexual abuse in childhood; Z79.899 Other long term (current) drug therapy
CPT/HCPCS: 36415; 80053; 80305; 80307; 85027; 86780; 87811; 93005; 93010

== ENCOUNTER 2024-03-21 13:01 | Inpatient (IN) | payer OTHER ==
[2024-03-21] MEDS ORDERED: POLYETHYLENE GLYCOL (HEALTHYLAX) 3350 17 GM PACKET PO PRN (14:58)
[2024-03-21] MEDS ORDERED: IBUPROFEN 400 MG TABLET (FP) PO PRN (14:58)
[2024-03-21] MEDS ORDERED: ACETAMINOPHEN 325 MG TABLET (FP) PO PRN (14:58)
[2024-03-21] MEDS ORDERED: NICOTINE POLACRILEX 4 MG LOZENGE BC PRN (14:58)
[2024-03-21] MEDS ORDERED: MAGNESIUM HYDROX 2400MG/30ML ORAL SUSPENSION 30 ML CUP PO PRN (14:58)
[2024-03-21] MEDS ORDERED: NICOTINE POLACRILEX 4 MG GUM BUC PRN (14:58)
[2024-03-21] MEDS ORDERED: guaiFENesin 600 MG TABLET.ER (FP) PO PRN (14:58)
[2024-03-21] MEDS ORDERED: NALOXONE (NARCAN) HCL 4 MG/0.1 ML SPRAY NS PRN (14:58)
[2024-03-21] MEDS ORDERED: LOPERAMIDE HCL 2 MG CAPSULE PO PRN (14:58)
[2024-03-21] MEDS ORDERED: BENZONATATE 200 MG CAPSULE PO PRN (14:58)
[2024-03-21] MEDS ORDERED: METHOCARBAMOL 500 MG TABLET PO PRN (14:58)
[2024-03-21] MEDS ORDERED: NALOXONE HCL 0.4 MG/ML VIAL IVPUSH PRN (14:58)
[2024-03-21] MEDS ORDERED: ALBUTEROL SO4 HFA INHALER IH PRN (15:00)
[2024-03-21] MEDS: IBUPROFEN 600 MG TABLET (FP) PO PRN (18:38)
[2024-03-21] MEDS: BENZOCAINE/MENTHOL (CHLORASEPTIC ) LOZENGE MM PRN (18:39)
[2024-03-21] MEDS: GABAPENTIN 400 MG CAPSULE PO SCH (21:08)
[2024-03-21] MEDS: QUEtiapine FUMARATE 100 MG TABLET (FP) PO SCH (21:08)
[2024-03-21] MEDS: BUDESONIDE/FORMETEROL FUMARATE 160/4.5 mcg INHALER IH SCH (21:08)
[2024-03-21] MEDS: MELATONIN 5 MG TABLETS PO SCH (21:08)
[2024-03-21] MEDS: THIAMINE 100 MG TABLET PO SCH (21:10)
[2024-03-22] MEDS ORDERED: methaDONE HCL 10 MG TABLET PO SCH (06:00)
[2024-03-22] MEDS: methaDONE 80 MG, methaDONE 10 MG PO SCH (06:06)
[2024-03-22] MEDS: amLODIPine BESYLATE 5 MG TABLET (FP) PO SCH (09:38)
[2024-03-22] MEDS: BICTEGRAV/EMTRICIT/TENOFOV (BIKTARVY) 50-200-25 MG TABLET PO SCH (09:38)
[2024-03-22] MEDS: ASPIRIN 81 MG CHEWABLE TABLETS PO SCH (09:38)
[2024-03-22] MEDS: SERTRALINE HCL 50 MG TABLET (FP) PO SCH (09:38)
[2024-03-22] MEDS: NICOTINE 7 MG/24 HOURS TOPICAL PATCH TD SCH (09:39)
[2024-03-22] MEDS: PRENATAL VITAMINS W/ FOLIC ACID TABLET (FP) PO SCH (09:39)
[2024-03-22] MEDS: FLU VACCINE (FLULAVAL) PF 45 MCG/0.5 ML SYRINGE 2024-2025 IM ONE (11:51)
[2024-03-22] MEDS: hydrOXYzine PAMOATE 25 MG CAPSULE (FP) PO PRN (21:16)
[2024-03-24] MEDS: MAG HYDROX/AL HYDROX/SIMETH 30 ML UNIT-DOSE CUP PO PRN (07:33)
[2024-03-27] MEDS ORDERED: VITAMINS A AND D TOPICAL OINTMENT TP PRN (12:48)
[2024-03-27] MEDS: amLODIPine BESYLATE 2.5 MG TABLET (FP) PO SCH (13:44)
[2024-03-27] MEDS: GABAPENTIN 300 MG CAPSULE PO SCH (13:45)
[2024-03-28] MEDS ORDERED: methaDONE HCL 40 MG DISPERSABLE TABLET PO SCH (06:00)
[2024-03-28] MEDS: amLODIPine BESYLATE 2.5 MG TABLET (FP) PO SCH (10:49)
[2024-03-29] MEDS: BICTEGRAV/EMTRICIT/TENOFOV (BIKTARVY) 50-200-25 MG TABLET PO SCH (06:27)
[2024-04-06 06:39] VITALS: RESP 16
[2024-04-07 06:44] VITALS: BP 109/74; PULSE 61; TEMP 97.7
== END 2024-04-07 10:03 | disposition home or self-care (01) | DRG 772 ==
LOC: YASAS 13:01 → Y5N 13:04
PROVIDERS: ADMIT Psychiatry & Neurology Pain Medicine; ATTEND Psychiatry & Neurology Pain Medicine
PROC: HZ42ZZZ Group Counseling for Substance Abuse Treatment, Cognitive-Behavioral (ICD-10-PCS; principal; 2024-03-21)
DX: F11.20 Opioid dependence, uncomplicated (principal); F10.20 Alcohol dependence, uncomplicated; F14.20 Cocaine dependence, uncomplicated; F13.20 Sedative, hypnotic or anxiolytic dependence, uncomplicated; F17.210 Nicotine dependence, cigarettes, uncomplicated; F31.9 Bipolar disorder, unspecified; Z21 Asymptomatic human immunodeficiency virus [HIV] infection status; G62.9 Polyneuropathy, unspecified; E78.5 Hyperlipidemia, unspecified; I10 Essential (primary) hypertension; L85.3 Xerosis cutis; J45.909 Unspecified asthma, uncomplicated; Z79.899 Other long term (current) drug therapy; Z56.0 Unemployment, unspecified
CPT/HCPCS: 36415; 82140; 86803; 87522; 90656; G0008

== ENCOUNTER 2024-05-03 13:11 | Inpatient (IN) | payer OTHER ==
[2024-05-03 13:59] VITALS: BMI 24.7
[2024-05-03] MEDS ORDERED: ALBUTEROL SO4 HFA INHALER IH PRN (15:19)
[2024-05-03] MEDS ORDERED: POLYETHYLENE GLYCOL (HEALTHYLAX) 3350 17 GM PACKET PO PRN (15:21)
[2024-05-03] MEDS ORDERED: LOPERAMIDE HCL 2 MG CAPSULE PO PRN (15:21)
[2024-05-03] MEDS ORDERED: hydrOXYzine PAMOATE 25 MG CAPSULE (FP) PO PRN (15:21)
[2024-05-03] MEDS ORDERED: NALOXONE (NARCAN) HCL 4 MG/0.1 ML SPRAY NS PRN (15:21)
[2024-05-03] MEDS ORDERED: BENZONATATE 200 MG CAPSULE PO PRN (15:21)
[2024-05-03] MEDS ORDERED: DICYCLOMINE HCL 10 MG CAPSULE PO PRN (15:21)
[2024-05-03] MEDS ORDERED: guaiFENesin 600 MG TABLET.ER (FP) PO PRN (15:21)
[2024-05-03] MEDS ORDERED: BISMUTH SUBSALICYLATE 262 MG/15 ML BTL PO PRN (15:21)
[2024-05-03] MEDS ORDERED: MAGNESIUM HYDROX 2400MG/30ML ORAL SUSPENSION 30 ML CUP PO PRN (15:21)
[2024-05-03] MEDS ORDERED: IBUPROFEN 600 MG TABLET (FP) PO PRN (15:21)
[2024-05-03] MEDS ORDERED: IBUPROFEN 400 MG TABLET (FP) PO PRN (15:21)
[2024-05-03] MEDS ORDERED: amLODIPine BESYLATE 5 MG TABLET (FP) ONE (16:09)
[2024-05-03] MEDS: amLODIPine BESYLATE 5 MG TABLET (FP) PO SCH (16:12)
[2024-05-03] MEDS: methaDONE HCL 10 MG TABLET PO ONE (16:12)
[2024-05-03] MEDS: diazePAM 5 MG TABLET PO SCH (17:23)
[2024-05-03] MEDS: cloNIDine HCL 0.1 MG TABLET PO SCH (17:23)
[2024-05-03] MEDS: ACETAMINOPHEN 325 MG TABLET (FP) PO PRN (17:24)
[2024-05-03] MEDS: BENZOCAINE/MENTHOL (CHLORASEPTIC ) LOZENGE MM PRN (17:27)
[2024-05-03] MEDS: GABAPENTIN 300 MG CAPSULE PO SCH (22:26)
[2024-05-03] MEDS: THIAMINE 100 MG TABLET PO SCH (22:26)
[2024-05-03] MEDS: MELATONIN 5 MG TABLETS PO SCH (22:27)
[2024-05-03] MEDS: BUDESONIDE/FORMETEROL FUMARATE 160/4.5 mcg INHALER IH SCH (22:28)
[2024-05-04] MEDS: methaDONE 80 MG, methaDONE 10 MG PO SCH (05:41)
[2024-05-04] MEDS ORDERED: methaDONE 80 MG, methaDONE 10 MG PO SCH (06:00)
[2024-05-04] MEDS ORDERED: methaDONE HCL 10 MG TABLET PO SCH (06:00)
[2024-05-04] MEDS: MAG HYDROX/AL HYDROX/SIMETH 30 ML UNIT-DOSE CUP PO PRN (08:33)
[2024-05-04] MEDS: methaDONE HCL 10 MG TABLET PO ONE (09:18)
[2024-05-04] MEDS: ASPIRIN 81 MG CHEWABLE TABLETS PO SCH (09:18)
[2024-05-04] MEDS: PRENATAL VITAMINS W/ FOLIC ACID TABLET (FP) PO SCH (09:18)
[2024-05-04] MEDS: BICTEGRAV/EMTRICIT/TENOFOV (BIKTARVY) 50-200-25 MG TABLET PO SCH (09:19)
[2024-05-04] MEDS ORDERED: SERTRALINE HCL 50 MG TABLET (FP) PO SCH (11:00)
[2024-05-04 11:14] LABS: CHLORIDE 104 mmol/L (98-107); POTASSIUM 4.1 mmol/L (3.5-5.1); SODIUM 141 mmol/L (136-145)
[2024-05-04 11:16] LABS: HEMATOCRIT 36.7 % (35.4-49); HEMOGLOBIN 11.8 GM/dL (11.7-16.9); MCH 26.4 pg (25.7-33.7); MCHC 32.2 g/dl (32.0-35.9); MEAN PLT VOLUME 9.9 fl (7.5-11.1); PLATELET COUNT 153 10^3/uL (134-434); RBC 4.48 M/mm3 (4.00-5.60); RDW 15.2 % (11.9-15.9); WHITE BLOOD COUNT 3.7 K/mm3 (4.0-10.0)
[2024-05-04 11:18] LABS: ALBUMIN 2.5 g/dl (3.4-5.0); ANION GAP 4 mmol/L (4-13); BLOOD UREA NITROGEN 21.6 mg/dL (7-18); CALCIUM 8.5 mg/dL (8.5-10.1); CO2 32 mmol/L (21-32); GLUCOSE,RANDOM 145 mg/dL (74-106)
[2024-05-04 11:21] LABS: SGOT/AST 76 U/L (15-37); SGPT/ALT 89 U/L (13-61)
[2024-05-04] MEDS: SERTRALINE HCL 50 MG TABLET (FP) PO SCH (11:21)
[2024-05-04 11:22] LABS: BILIRUBIN,TOTAL 0.2 mg/dL (0.2-1); TOT PROT 5.5 g/dl (6.4-8.2)
[2024-05-04 11:24] LABS: ALK PHOS 122 U/L (45-117)
[2024-05-04 11:26] LABS: CHOLESTEROL 91 mg/dL (50-200)
[2024-05-04 11:27] LABS: LDL CHOLESTEROL (ONLY SJRH) 32 mg/dL (5-100)
[2024-05-04 11:30] LABS: HDL CHOLESTEROL 49 mg/dL (40-60)
[2024-05-04] MEDS: QUEtiapine FUMARATE 100 MG TABLET (FP) PO SCH (22:36)
[2024-05-05] MEDS ORDERED: cloNIDine HCL 0.1 MG TABLET PO PRN
[2024-05-05] MEDS: diazePAM 5 MG TABLET PO SCH (05:34)
[2024-05-05] MEDS: ONDANSETRON *ODT* 4 MG TABLET SL PRN (09:06)
[2024-05-05] MEDS: METHOCARBAMOL 500 MG TABLET PO PRN (13:20)
[2024-05-05] MEDS: SUVOREXANT 10 MG TABLET PO PRN (22:32)
[2024-05-05] MEDS: diazePAM 5 MG TABLET PO PRN (22:32)
[2024-05-06] MEDS: diazePAM 5 MG TABLET PO SCH (05:46)
[2024-05-06] MEDS: methaDONE HCL 10 MG TABLET PO ONE (10:16)
[2024-05-06] MEDS: NICOTINE POLACRILEX 2 MG GUM BUC PRN (18:36)
[2024-05-07] MEDS: diazePAM 5 MG TABLET PO ONE (05:30)
[2024-05-07] MEDS: NALOXONE (NYS OPIOID OVERDOSE PROGRAM) 4 MG/0.1 ML SPRAY NS SCH (09:20)
[2024-05-07] MEDS ORDERED: methaDONE HCL 40 MG DISPERSABLE TABLET PO ONE (10:00)
[2024-05-07] MEDS: PANTOPRAZOLE 40 MG TABLET PO SCH (18:40)
[2024-05-08 09:50] VITALS: RESP 18
[2024-05-08] MEDS: methaDONE HCL 10 MG TABLET PO ONE (10:31)
[2024-05-08 13:30] VITALS: BP 117/71; PULSE 80; TEMP 97.7
== END 2024-05-08 13:55 | disposition other institution (70) | DRG 773 ==
LOC: YASAS 13:11 → Y6N 16:02
PROVIDERS: ADMIT Allergy & Immunology; ATTEND Surgery
PROC: HZ2ZZZZ Detoxification Services for Substance Abuse Treatment (ICD-10-PCS; principal; 2024-05-03)
DX: F10.230 Alcohol dependence with withdrawal, uncomplicated (principal); F11.20 Opioid dependence, uncomplicated; F14.20 Cocaine dependence, uncomplicated; F12.20 Cannabis dependence, uncomplicated; F17.210 Nicotine dependence, cigarettes, uncomplicated; F19.280 Other psychoactive substance dependence with psychoactive substance-induced anxiety disorder; F19.282 Other psychoactive substance dependence with psychoactive substance-induced sleep disorder; Z21 Asymptomatic human immunodeficiency virus [HIV] infection status; G62.9 Polyneuropathy, unspecified; I10 Essential (primary) hypertension; J45.20 Mild intermittent asthma, uncomplicated; B18.2 Chronic viral hepatitis C; Z62.810 Personal history of physical and sexual abuse in childhood; Z63.8 Other specified problems related to primary support group
CPT/HCPCS: 36415; 80053; 80061; 80305; 80307; 85027; 86780; 87811; 93005; 93010; Q0162

== ENCOUNTER 2024-05-08 14:39 | Inpatient (IN) | payer OTHER ==
[~2024-05-08 14:39] MED LIST: ALBUTEROL SO4 HFA INHALER IH PRN; BENZONATATE 200 MG CAPSULE PO PRN; IBUPROFEN 400 MG TABLET (FP) PO PRN; IBUPROFEN 600 MG TABLET (FP) PO PRN; LOPERAMIDE HCL 2 MG CAPSULE PO PRN; MAGNESIUM HYDROX 2400MG/30ML ORAL SUSPENSION 30 ML CUP PO PRN; NALOXONE (NARCAN) HCL 4 MG/0.1 ML SPRAY NS PRN; NICOTINE POLACRILEX 2 MG GUM BUC PRN; NICOTINE POLACRILEX 2 MG LOZENGE BC PRN; POLYETHYLENE GLYCOL (HEALTHYLAX) 3350 17 GM PACKET PO PRN; guaiFENesin 600 MG TABLET.ER (FP) PO PRN; hydrOXYzine PAMOATE 25 MG CAPSULE (FP) PO PRN
[2024-05-08] MEDS: FAMOTIDINE 20 MG TABLET PO SCH (16:23)
[2024-05-08] MEDS: GABAPENTIN 300 MG CAPSULE PO SCH (22:36)
[2024-05-08] MEDS: MELATONIN 5 MG TABLETS PO SCH (22:36)
[2024-05-08] MEDS: QUEtiapine FUMARATE 100 MG TABLET (FP) PO SCH (22:36)
[2024-05-08] MEDS: THIAMINE 100 MG TABLET PO SCH (22:36)
[2024-05-08] MEDS: BUDESONIDE/FORMETEROL FUMARATE 80/4.5 mcg INHALER IH SCH (23:16)
[2024-05-09] MEDS: BENZOCAINE/MENTHOL (CHLORASEPTIC ) LOZENGE MM PRN (05:45)
[2024-05-09] MEDS ORDERED: methaDONE HCL 40 MG DISPERSABLE TABLET PO SCH (06:00)
[2024-05-09] MEDS: methaDONE 80 MG, methaDONE 10 MG PO SCH (07:09)
[2024-05-09] MEDS: BICTEGRAV/EMTRICIT/TENOFOV (BIKTARVY) 50-200-25 MG TABLET PO SCH (07:14)
[2024-05-09] MEDS: SERTRALINE HCL 50 MG TABLET (FP) PO SCH (09:54)
[2024-05-09] MEDS: ASPIRIN 81 MG CHEWABLE TABLETS PO SCH (09:54)
[2024-05-09] MEDS: PRENATAL VITAMINS W/ FOLIC ACID TABLET (FP) PO SCH (09:54)
[2024-05-09] MEDS: amLODIPine BESYLATE 5 MG TABLET (FP) PO SCH (09:54)
[2024-05-10] MEDS: ACETAMINOPHEN 325 MG TABLET (FP) PO PRN (10:04)
[2024-05-10] MEDS: AMOX TR/POT CLAV 500MG/125MG TABLETS (FP) PO SCH (17:53)
[2024-05-10] MEDS: NYSTATIN 500,000 UNITS/5 ML SUSPENSION PO SCH (18:39)
[2024-05-10] MEDS: MAG HYDROX/AL HYDROX/SIMETH 30 ML UNIT-DOSE CUP PO PRN (21:11)
[2024-05-10] MEDS: ONDANSETRON *ODT* 4 MG TABLET SL PRN (23:00)
[2024-05-11 11:44] VITALS: RESP 18
[2024-05-11] MEDS ORDERED: SUVOREXANT 10 MG TABLET PO PRN (22:00)
[2024-05-12 06:21] VITALS: TEMP 98.6
[2024-05-12 09:16] VITALS: BP 106/68; PULSE 89
[2024-05-12] MEDS: NALOXONE (NYS OPIOID OVERDOSE PROGRAM) 4 MG/0.1 ML SPRAY NS SCH (12:00)
== END 2024-05-12 12:17 | disposition left against medical advice (07) | DRG 770 ==
LOC: YASAS 14:39 → Y3NR 14:43 → Y3W 05-09 10:14
PROVIDERS: ADMIT Psychiatry & Neurology Pain Medicine; ATTEND Psychiatry & Neurology Pain Medicine
PROC: HZ42ZZZ Group Counseling for Substance Abuse Treatment, Cognitive-Behavioral (ICD-10-PCS; principal; 2024-05-08)
DX: F10.20 Alcohol dependence, uncomplicated (principal); F11.20 Opioid dependence, uncomplicated; F14.20 Cocaine dependence, uncomplicated; F13.20 Sedative, hypnotic or anxiolytic dependence, uncomplicated; F17.210 Nicotine dependence, cigarettes, uncomplicated; F31.9 Bipolar disorder, unspecified; F19.282 Other psychoactive substance dependence with psychoactive substance-induced sleep disorder; F19.280 Other psychoactive substance dependence with psychoactive substance-induced anxiety disorder; Z21 Asymptomatic human immunodeficiency virus [HIV] infection status; E78.5 Hyperlipidemia, unspecified; I10 Essential (primary) hypertension; J45.909 Unspecified asthma, uncomplicated; Z79.899 Other long term (current) drug therapy
CPT/HCPCS: 0241U-QW; 82962; Q0162

== ENCOUNTER 2024-09-12 12:57 | Inpatient (IN) | payer OTHER ==
[2024-09-12 13:29] VITALS: BMI 21.9
[2024-09-12] MEDS ORDERED: ACETAMINOPHEN 325 MG TABLET (FP) PO PRN (14:36)
[2024-09-12] MEDS ORDERED: MAGNESIUM HYDROX 2400MG/30ML ORAL SUSPENSION 30 ML CUP PO PRN (14:36)
[2024-09-12] MEDS ORDERED: BENZOCAINE/MENTHOL (CHLORASEPTIC ) LOZENGE MM PRN (14:36)
[2024-09-12] MEDS ORDERED: IBUPROFEN 600 MG TABLET (FP) PO PRN (14:36)
[2024-09-12] MEDS ORDERED: IBUPROFEN 400 MG TABLET (FP) PO PRN (14:36)
[2024-09-12] MEDS ORDERED: LOPERAMIDE HCL 2 MG CAPSULE PO PRN (14:36)
[2024-09-12] MEDS ORDERED: MAG HYDROX/AL HYDROX/SIMETH 30 ML UNIT-DOSE CUP PO PRN (14:36)
[2024-09-12] MEDS ORDERED: guaiFENesin 600 MG TABLET.ER (FP) PO PRN (14:36)
[2024-09-12] MEDS ORDERED: POLYETHYLENE GLYCOL (HEALTHYLAX) 3350 17 GM PACKET PO PRN (14:36)
[2024-09-12] MEDS ORDERED: BENZONATATE 200 MG CAPSULE PO PRN (14:36)
[2024-09-12] MEDS ORDERED: NALOXONE (NARCAN) HCL 4 MG/0.1 ML SPRAY NS PRN (14:36)
[2024-09-12] MEDS ORDERED: BISMUTH SUBSALICYLATE 524 MG/30 ML PO PRN (14:36)
[2024-09-12] MEDS ORDERED: DICYCLOMINE HCL 10 MG CAPSULE PO PRN (14:36)
[2024-09-12] MEDS ORDERED: NICOTINE POLACRILEX 2 MG GUM BUC PRN (14:36)
[2024-09-12] MEDS ORDERED: NICOTINE POLACRILEX 2 MG LOZENGE BC PRN (14:36)
[2024-09-12] MEDS: chlordiazePOXIDE HCL 25 MG CAPSULE PO SCH (17:29)
[2024-09-12] MEDS: METHOCARBAMOL 500 MG TABLET PO PRN (17:29)
[2024-09-12] MEDS: THIAMINE 100 MG TABLET PO SCH (22:34)
[2024-09-12] MEDS: MELATONIN 5 MG TABLETS PO SCH (22:34)
[2024-09-13] MEDS ORDERED: methaDONE HCL 10 MG TABLET PO ONE (08:30)
[2024-09-13] MEDS ORDERED: ALBUTEROL SO4 HFA INHALER IH PRN (10:39)
[2024-09-13] MEDS: PRENATAL VITAMINS W/ FOLIC ACID TABLET (FP) PO SCH (11:04)
[2024-09-13] MEDS: methaDONE HCL 10 MG TABLET PO ONE (11:06)
[2024-09-13] MEDS: ASPIRIN 81 MG CHEWABLE TABLETS PO SCH (13:39)
[2024-09-13] MEDS: amLODIPine BESYLATE 5 MG TABLET (FP) PO SCH (13:39)
[2024-09-13] MEDS: BICTEGRAV/EMTRICIT/TENOFOV (BIKTARVY) 50-200-25 MG TABLET PO SCH (13:39)
[2024-09-13] MEDS: FAMOTIDINE 20 MG TABLET PO SCH (13:39)
[2024-09-13 15:18] LABS: HEMATOCRIT 37.9 % (40.1-51.0); HEMOGLOBIN 11.8 g/dL (13.7-17.5); MCHC 31.1 g/dl (32.3-36.5); MEAN CELL VOLUME 81.3 fl (79.0-92.2); MEAN PLT VOLUME 11.4 fl (9.4-12.4); PLATELET COUNT 155 x10^3/uL (163-337); RDW 17.7 % (12.2-16.1)
[2024-09-13 15:23] LABS: CHLORIDE 108 mmol/L (98-107); POTASSIUM 4.3 mmol/L (3.5-5.1); SODIUM 140 mmol/L (136-145)
[2024-09-13 18:14] LABS: CALCIUM 8.6 mg/dL (8.5-10.1)
[2024-09-13 18:15] LABS: ALBUMIN 2.7 g/dl (3.4-5.0); BLOOD UREA NITROGEN 9.6 mg/dL (7-18); CO2 27 mmol/L (21-32); GLUCOSE,RANDOM 130 mg/dL (74-106)
[2024-09-13 18:18] LABS: CREATININE 0.8 mg/dL (0.55-1.3); SGOT/AST 39 U/L (15-37); SGPT/ALT 65 U/L (13-61)
[2024-09-13 18:19] LABS: TOT PROT 6.6 g/dl (6.4-8.2)
[2024-09-13 18:20] LABS: BILIRUBIN,TOTAL 0.4 mg/dL (0.2-1)
[2024-09-13 18:21] LABS: ALK PHOS 87 U/L (45-117)
[2024-09-13 18:34] LABS: ANION GAP 6 mmol/L (4-13)
[2024-09-13] MEDS: GABAPENTIN 300 MG CAPSULE PO SCH (22:09)
[2024-09-13] MEDS: QUEtiapine FUMARATE 100 MG TABLET (FP) PO SCH (22:09)
[2024-09-13] MEDS: BUDESONIDE/FORMETEROL FUMARATE 160/4.5 mcg INHALER IH SCH (22:10)
[2024-09-14] MEDS: chlordiazePOXIDE HCL 25 MG CAPSULE PO SCH (05:57)
[2024-09-14] MEDS ORDERED: methaDONE HCL 10 MG TABLET PO SCH (06:00)
[2024-09-14] MEDS: methaDONE 40 MG, methaDONE 20 MG PO ONE (09:04)
[2024-09-14] MEDS: hydrOXYzine PAMOATE 25 MG CAPSULE (FP) PO PRN (10:08)
[2024-09-14] MEDS: SERTRALINE HCL 50 MG TABLET (FP) PO SCH (10:08)
[2024-09-14] MEDS: chlordiazePOXIDE HCL 25 MG CAPSULE PO PRN (13:11)
[2024-09-15] MEDS ORDERED: chlordiazePOXIDE HCL 10 MG CAPSULE PO PRN
[2024-09-15] MEDS: chlordiazePOXIDE HCL 10 MG CAPSULE PO SCH (05:50)
[2024-09-15] MEDS: ONDANSETRON *ODT* 4 MG TABLET SL PRN (10:10)
[2024-09-15 10:21] VITALS: BP 120/79; PULSE 100; RESP 20; TEMP 98.7
[2024-09-16] MEDS ORDERED: chlordiazePOXIDE HCL 10 MG CAPSULE PO SCH (05:00)
[2024-09-16] MEDS ORDERED: methaDONE 40 MG, methaDONE 30 MG PO ONE (10:00)
[2024-09-17] MEDS ORDERED: chlordiazePOXIDE HCL 10 MG CAPSULE PO ONE (05:00)
[2024-09-17] MEDS ORDERED: methaDONE HCL 10 MG TABLET PO ONE (10:00)
== END 2024-09-15 10:55 | disposition left against medical advice (07) | DRG 773 ==
LOC: YASAS 12:57 → Y6N 16:07
PROVIDERS: ADMIT Allergy & Immunology; ATTEND Allergy & Immunology
PROC: HZ2ZZZZ Detoxification Services for Substance Abuse Treatment (ICD-10-PCS; principal; 2024-09-12)
DX: F11.23 Opioid dependence with withdrawal (principal); F10.230 Alcohol dependence with withdrawal, uncomplicated; F13.20 Sedative, hypnotic or anxiolytic dependence, uncomplicated; F14.20 Cocaine dependence, uncomplicated; F17.210 Nicotine dependence, cigarettes, uncomplicated; F31.81 Bipolar II disorder; F19.24 Other psychoactive substance dependence with psychoactive substance-induced mood disorder; Z21 Asymptomatic human immunodeficiency virus [HIV] infection status; G62.9 Polyneuropathy, unspecified; I10 Essential (primary) hypertension; J44.9 Chronic obstructive pulmonary disease, unspecified; F91.8 Other conduct disorders; Z91.199 Patient's noncompliance with other medical treatment and regimen due to unspecified reason; Z62.810 Personal history of physical and sexual abuse in childhood
CPT/HCPCS: 36415; 80053; 80305; 80307; 85027; 86780; 93005; 93010; Q0162